=== PATIENT | female | born 1950 | race Caucasian/White ===

== ENCOUNTER 2017-11-06 22:00 | Inpatient (IN) | payer MEDICARE ==
[2017-11-06] MEDS ORDERED: NACL 0.9% 1000 ML 1,000 ML IV ONE (22:35)
[2017-11-06] MEDS ORDERED: ZOFRAN IV ONE (22:35)
--- NOTE | 2017-11-06 22:39 | Emergency Department Report ---
HPI - General Time Seen by Provider: 11/06/17 22:13 - HPI HPI: 67-year-old female presents to the emergency department via EMS from home with a complaint of a one-day history of nausea, vomiting, diarrhea and some generalized weakness and/or fatigue. The patient does not speak any Serbian but her grandchildren are here translating. She says that she has been vomiting multiple times throughout the day, upwards of 8-10 times. She has had some consistent diarrhea over this time as well. She has a past medical history of hyperlipidemia, [id number] diabetes. She has not taken anything for her symptoms prior to presentation. Primary care physician is Dr. Tunde Evans. No recent travel or sick contacts at home. ED Review of Systems ROS: Stated complaint: GENERAL WEAKNESS/NV Other details as noted in HPI Comment: All other systems reviewed and negative Constitutional: weakness. denies: fever Eyes: denies: eye pain, eye discharge, vision change ENT: denies: ear pain, throat pain Respiratory: denies: cough, shortness of breath, wheezing Cardiovascular: denies: chest pain, palpitations Gastrointestinal: nausea, vomiting, diarrhea Genitourinary: denies: urgency, dysuria, discharge Musculoskeletal: denies: back pain, joint swelling, arthralgia Skin: denies: rash, lesions Neurological: denies: headache, weakness, paresthesias Physical Exam - Physical Exam Physical Exam: GENERAL: The patient is well-developed well-nourished. HENT: Normocephalic. Atraumatic. Patient has moist mucous membranes. EYES: Extraocular motions are intact. Pupils equal reactive to light bilaterally. NECK: Supple. Trachea is midline. CHEST/LUNGS: Clear to auscultation. There is no respiratory distress noted. HEART/CARDIOVASCULAR: Regular. There is no tachycardia. There is no murmur. ABDOMEN: Abdomen is soft, nontender. Patient has normal bowel sounds. There is no abdominal distention. SKIN: Skin is warm and dry. NEURO: The patient is awake, alert, and oriented. The patient is cooperative. The patient has no focal neurologic deficits. MUSCULOSKELETAL: There is no tenderness or deformity. There is no evidence of acute injury. ED Medical Decision Making - Lab Data Result diagrams: 11/06/17 22:54 11/06/17 22:54 - EKG Data -: EKG Interpreted by Me EKG shows normal: sinus rhythm, axis, intervals, QRS complexes, ST-T waves (T- wave inversions to the inferior and lateral leads) Rate: normal - EKG Data When compared to previous EKG there are: previous EKG unavailable Interpretation: other (sinus rhythm, normal axis, T-wave inversions in the inferior and lateral leads) - Radiology Data Radiology results: report reviewed, image reviewed interpreted by me: Chest x-ray does not show any acute process. There are no pleural effusions, obvious pneumonia and there is no pneumothorax. PROCEDURE: US RENAL BILAT TECHNIQUE: Real-time sonography in multiple planes of the kidneys, ureters and urinary bladder was performed with image documentation. CPT 78577 HISTORY: SOFY COMPARISON: No prior studies are available for comparison. FINDINGS: RIGHT kidney: There are few cysts identified in the right kidney. In the mid and superior pole a cyst measures 1 x 7 x 11 millimeters. In the mid pole a cyst measures 12 x 10 x 12 millimeters.. Length: 7.8 cm. LEFT kidney: Normal echotexture. No focal renal mass, calculus, or hydronephrosis. Length: 3.3cm. Bladder: Normal. IMPRESSION: There are few cysts identified in the right renal cortex. No hydronephrosis.. Transcribed By: [facility] Dictated By: ELVIS PARK MD Electronically Authenticated By: ELVIS PARK MD Signed Date/Time: 11/07/17 0128 - Medical Decision Making Patient originally came in with complaint of nausea, vomiting, diarrhea and some generalized weakness and fatigue. She does not appear to have any focal deficits or any lateralizing deficits. She is awake and alert and cooperative. An IV was started and the patient was given some IV fluid resuscitation and some Zofran. EKG does not show any signs of ST elevation [place] but there are some T-wave inversions. Labs show a leukocytosis of 17,000 but no obvious source of infection. She has renal insufficiency with a creatinine of 1.8 and a GFR of less than 30. Patient also has a first troponin that is slightly elevated at 0.043. The patient has no complaints of any chest pain, back pain, shortness of breath and this may be secondary to her renal insufficiency, but we will get serial troponins. Chest x-ray does not show any acute process. However for all these reasons, the patient will be admitted to the hospital for further evaluation and treatment and has been accepted for admission by the hospitalist , Dr. Balbuena. - Differential Diagnosis gastroenteritis, food poisoning, sepsis, UTI, dehydration Critical Care Time: No Critical care attestation.: If time is entered above; I have spent that time in minutes in the direct care of this critically ill patient, excluding procedure time. ED Disposition Clinical Impression: Acute kidney injury, Elevated troponin, Generalized weakness Leukocytosis Qualifiers: Leukocytosis type: unspecified Qualified Code(s): D72.829 - Elevated white blood cell count, unspecified Nausea and vomiting Qualifiers: Vomiting type: unspecified Vomiting Intractability: non-intractable Qualified Code(s): R11.2 - Nausea with vomiting, unspecified Disposition: DC-09 OP ADMIT IP TO THIS HOSP Is pt being admited?: Yes Condition: Fair Referrals: GREGORIO NUNEZ MD [Primary Care Provider] - 3-5 Days Time of Disposition: 01:52
[2017-11-06 23:10] LABS: Eosinophils % (Auto) 0.1 % (0.0-4.3); Hematocrit 36.7 % (30.3-42.9); Hemoglobin 11.6 gm/dl (10.1-14.3); Lymphocytes # (Auto) 1.1 K/mm3 (1.2-5.4); Lymphocytes % (Auto) 6.4 % (13.4-35.0); Mean Corpuscular HGB Conc 32 % (30-34); Mean Corpuscular Hemoglobin 29 pg (28-32); Mean Corpuscular Volume 91 fl (79-97); Monocytes # (Auto) 0.7 K/mm3 (0.0-0.8); Monocytes % (Auto) 4.1 % (0.0-7.3); Platelet Count 193 K/mm3 (140-440); Red Blood Count 4.03 M/mm3 (3.65-5.03); Red Cell Distribution Width 13.4 % (13.2-15.2)
[2017-11-06 23:28] LABS: Albumin 4.3 g/dL (3.9-5); Calcium 9.6 mg/dL (8.4-10.2)
[2017-11-06 23:41] LABS: Chol/HDL Ratio 5.63 %
[2017-11-06 23:44] LABS: Bacteria,Urine 1+ /HPF (Negative); Bilirubin,Urine NEG (Negative); Blood,Urine SM (Negative); Color,Urine Yellow (Yellow); Mucus,Urine 1+ /HPF; Urobilinogen,Urine < 2.0 mg/dL (<2.0)
--- NOTE | 2017-11-06 23:52 | XRay Report ---
FINAL REPORT PROCEDURE: XR CHEST 1V AP TECHNIQUE: Chest radiograph anteroposterior view. CPT 20977 HISTORY: weakness COMPARISON: No prior studies are available for comparison. FINDINGS: Heart: Normal. Mediastinum/Vessels: Normal. Lungs/Pleural space: Normal. Bony thorax: No acute osseous abnormality. Life support devices: None. IMPRESSION: No acute cardiopulmonary abnormality.
[2017-11-07] MEDS ORDERED: ROCEPHIN/NS 1 GM/50 ML 1 GM/50 ML BAG IV ONE (00:22)
[2017-11-07] MEDS ORDERED: cefTRIAXone 1 GM in NACL 0.9% 20 ML IV ONE (00:30)
[2017-11-07] MEDS ORDERED: BABY ASPIRIN PO ONE (00:37)
--- NOTE | 2017-11-07 01:33 | Ultrasound Report ---
FINAL REPORT PROCEDURE: US RENAL BILAT TECHNIQUE: Real-time sonography in multiple planes of the kidneys, ureters and urinary bladder was performed with image documentation. CPT 70820 HISTORY: SOFY COMPARISON: No prior studies are available for comparison. FINDINGS: RIGHT kidney: There are few cysts identified in the right kidney. In the mid and superior pole a cyst measures 1 x 7 x 11 millimeters. In the mid pole a cyst measures 12 x 10 x 12 millimeters.. Length: 7.8 cm. LEFT kidney: Normal echotexture. No focal renal mass, calculus, or hydronephrosis. Length: 3.3cm. Bladder: Normal. IMPRESSION: There are few cysts identified in the right renal cortex. No hydronephrosis..
--- NOTE | 2017-11-07 02:51 | History and Physical Report ---
History of Present Illness Date of examination: 11/07/17 History of present illness: 67year old somali speaking woman with history of diabetes, breast cancer, hyperlipidemia comes to the ER for evaualuation of diarhea, non bloody, multiple episodes and nausea, vomiting and lethargy. She was in her garden working today in the hot sun. family at bedside traslating Review of system Constitutional: no weight loss, chills Ears, eyes, nose, mouth and throat: no nasal congestion, no nasal discharge, no sinus pressure, no vision change, no red eye. Neck: No neck pain or rigidity. Cardiovascular: no chest pain palpitations Respiratory: no shortness of breath cough Gastrointestinal: no abdominal pain, hematochezia Genitourinary : no frequency , no hematuria Musculoskeletal: no joint swelling or muscle ache Integumentary: no rash, no pruritis Neurological: no parathesias, no numbness, no focal weakness Endocrine: no cold or heat intolerance, no polyuria or polydipsia Hematologic/Lymphatic: no easy bruising, no easy bleeding, no gland swelling Allergic/Immunologic: no urticaria, no angioedema. PAST MEDICAL HISTORY: Diabetes, breast cancer, hyperlipidemia PAST SURGICAL HISTORY: right masectomy SOCIAL HISTORY: Denies focal, tobacco, drugs FAMILY HISTORY: Hypertension Medications and Allergies Allergies Allergy/AdvReac Type Severity Reaction Status Date / Time No Known Allergies Allergy Verified 11/07/17 00:25 Active Meds: Active Medications Enoxaparin Sodium (Lovenox) 30 mg SUB-Q QDAY [facility] Sodium Chloride (Nacl 0.9% 1000 Ml) 1,000 mls @ 150 mls/hr IV DIRECT KELLEY Exam - Physical Exam Narrative exam: Gen. appearance: Patient lying in bed, no apparent distress HEENT: Normocephalic, atraumatic, pupils equally round and reactive to light, extraocular movement intact, and no sclericterus,. No JVD or thyromegaly or nodule,neck supple, no carotid bruit ,mucous membranes dry, no exudate or erythema Heart: S1, S2, regular rate and rhythm Lungs: Clear bilaterally, breathing comfortable Abdomen: Positive bowel sounds, nontender, nondistended, no organomegaly Extremity:right cage tender, +erythema, swollen, 2nd and 3rd toes fused, no edema cyanosis, clubbing Neuro: Oriented 3, cranial nerves II-12 intact, motor and sensory intact - Constitutional Vitals: Temp Pulse Resp BP Pulse Ox 97.8 F 88 18 142/77 98 11/06/17 22:57 11/06/17 22:57 11/06/17 23:06 11/06/17 22:57 11/06/17 23:06 Results - Labs CBC & Chem 7: 11/06/17 22:54 11/06/17 22:54 Labs: Abnormal lab results 11/06/17 11/06/17 11/06/17 Range/Units 22:54 22:54 Unknown WBC 17.6 H (4.5-11.0) K/mm3 Lymph % (Auto) 6.4 L (13.4-35.0) % Lymph # 1.1 L (1.2-5.4) K/mm3 Seg Neutrophils % 89.4 H (40.0-70.0) % Seg Neutrophils # 15.7 H (1.8-7.7) K/mm3 Carbon Dioxide 18 L (22-30) mmol/L BUN 37 H (7-17) mg/dL Creatinine 1.8 H (0.7-1.2) mg/dL Glucose 181 H (65-100) mg/dL Troponin T 0.043 H (0.00-0.029) ng/mL Total Protein 8.7 H (6.3-8.2) g/dL Triglycerides 252 H (2-149) mg/dL Cholesterol 259 H (50-199) mg/dL LDL Cholesterol Direct 173 H (50-130) mg/dL Urine WBC (Auto) 15.0 H (0.0-6.0) /HPF - Imaging and Cardiology US - abdomen: report reviewed Assessment and Plan Assessment Acute renal failure Gsstroenteritis, viral UTI Diabetes Hyperlipidemia H/o breast cancer Plan Admit to medicine Start IV fluid, hold lisinopril Check stool studies, fingersticks, start antbiotic DVT prophalaxis
[2017-11-07] MEDS ORDERED: ZOFRAN IV PRN (03:06)
[2017-11-07] MEDS ORDERED: D50W (25GM) Syringe IV PRN (03:06)
[2017-11-07] MEDS ORDERED: TYLENOL PO PRN (03:06)
[2017-11-07] MEDS ORDERED: SODIUM CHLORIDE FLUSH SYRINGE 10 ML IV PRN (03:06)
[2017-11-07] MEDS: NACL 0.9% 1000 ML 1,000 ML IV SCH ×2 (05:07→12:50)
[2017-11-07] MEDS ORDERED: SODIUM CHLORIDE FLUSH SYRINGE 10 ML IV SCH (10:00)
[2017-11-07] MEDS: LOVENOX SUB-Q SCH (11:09)
[2017-11-07] MEDS: cefTRIAXone 1 GM in NACL 0.9% 20 ML IV SCH (11:09)
[2017-11-07] MEDS ORDERED: PNEUMOVAX 23 IM ONE (12:00)
[2017-11-08] MEDS: NACL 0.9% 1000 ML 1,000 ML IV SCH ×2 (01:16→07:05)
[2017-11-08 07:50] LABS: Basophils % (Auto) 0.2 % (0.0-1.8); Eosinophils # (Auto) 0.1 K/mm3 (0.0-0.4); Eosinophils % (Auto) 1.2 % (0.0-4.3); Hematocrit 28.5 % (30.3-42.9); Hemoglobin 9.3 gm/dl (10.1-14.3); Lymphocytes # (Auto) 1.4 K/mm3 (1.2-5.4); Lymphocytes % (Auto) 24.7 % (13.4-35.0); Mean Corpuscular HGB Conc 33 % (30-34); Mean Corpuscular Hemoglobin 30 pg (28-32); Mean Corpuscular Volume 90 fl (79-97); Monocytes # (Auto) 0.3 K/mm3 (0.0-0.8); Monocytes % (Auto) 5.1 % (0.0-7.3); Platelet Count 128 K/mm3 (140-440); Red Blood Count 3.15 M/mm3 (3.65-5.03); Red Cell Distribution Width 13.4 % (13.2-15.2)
[2017-11-08 07:56] LABS: BUN/Creatinine Ratio 16; Blood Urea Nitrogen 13 mg/dL (7-17); Calcium 7.9 mg/dL (8.4-10.2); Hemolysis Index 7
[2017-11-08 08:51] VITALS: BP 145/83
[2017-11-08] MEDS: cefTRIAXone 1 GM in NACL 0.9% 20 ML IV SCH (10:15)
[2017-11-08] MEDS: LOVENOX SUB-Q SCH (10:16)
--- NOTE | 2017-11-08 14:58 | Discharge Summary ---
Providers - Providers Date of Admission: 11/07/17 02:42 Attending physician: NOAH NORWOOD MD Primary care physician: GREGORIO NUNEZ Hospitalization Condition: Fair Hospital course: 67year old south african speaking woman with history of diabetes, breast cancer, hyperlipidemia comes to the ER for evaualuation of diarhea, non bloody, multiple episodes and nausea, vomiting and lethargy. She was in her garden working in 103 degree sun before she felt ill. She was admitted for acute gastroenteritis, most likely viral. She received supportive treatment. She received IV fluids. Kidney function improved to baseline prior to discharge. She received abx for UTI Diagnosis vasomotor nephropathy Dehydration Acute renal failure Gastroenteritis, viral UTI Diabetes Hyperlipidemia H/o breast cancer Disposition: TO HOME OR SELFCARE Time spent for discharge: 33 minutes Core Measure Documentation - Palliative Care Palliative Care/ Comfort Measures: Not Applicable - Core Measures Any of the following diagnoses?: none Exam - Constitutional Vitals: Temp Pulse Resp BP Pulse Ox 98.5 F 86 20 145/83 100 11/08/17 08:23 11/08/17 10:00 11/08/17 10:00 11/08/17 08:23 11/08/17 10:00 General appearance: Present: no acute distress, well-nourished - EENT Eyes: Present: PERRL ENT: hearing intact, clear oral mucosa - Neck Neck: Present: supple, normal ROM - Respiratory Respiratory effort: normal Respiratory: bilateral: CTA - Cardiovascular Heart Sounds: Present: S1 & S2. Absent: rub, click - Extremities Extremities: pulses symmetrical, No edema Peripheral Pulses: within normal limits - Abdominal General gastrointestinal: Present: soft, non-tender, non-distended, normal bowel sounds Female genitourinary: Present: normal - Integumentary Integumentary: Present: clear, warm, dry - Musculoskeletal Musculoskeletal: gait normal, strength equal bilaterally - Psychiatric Psychiatric: appropriate mood/affect, intact judgment & insight - Neurologic Neurologic: CNII-XII intact, moves all extremities Plan Follow up with: GREGORIO NUNEZ MD [Primary Care Provider] - 3-5 Days Forms: Accompanied Note Prescriptions: Cephalexin [Keflex] 500 mg PO BID #6 capsule
[2017-11-09] MEDS ORDERED: LOVENOX SUB-Q SCH (10:00)
--- NOTE | 2017-11-09 13:09 | Query-Infection ---
Cecily Diaz___Tanna Date:__11/09/2017 Nut [employer]acker/CDS:___Ana Maria Phone#:__[phone] Exercise your independent professional judgment when responding to this query. Questions asked do not imply a particular answer is desired or expected. We greatly appreciate your clarification on this issue. Clinical Documentation States: 67 Year old female was admitted on 11/06/2017 or evaluation of diarrhea, non bloody, multiple episodes and nausea, vomiting and lethargy. The Discharge summary stated "Gastroenteritis, viral UTI." Clinical findings show: (please check applicable parameters) WBC (11/06): 17.6 NH (11/06): 102 RR (11/06): 22 Infection, known /suspected, with some of the following indicators; Specify the infection: 3 General parameters [ ] Fever (core temp >38.30C or 100.40F) [ ] Hypothermia (core temp <36C) [X] Heart rate >90 bpm [X] Tachypnea: >20 bpm or pCO2 < 32 mmHg [ ] Altered mental status [ ] Significant edema / +ve fluid balance (>20 ml/kg 24 h) [ ] Hyperglycemia (Bl. glucose >110 mg/dl) w/o diabetes Inflammatory parameters [X] Leukocytosis (white blood cell count >12,000/l) [ ] Leukopenia (white blood cell count <4,000/l) [ ] Bandemia (immature WBC > 10%) [ ] Leucocyte Left Shift [ ] Plasma procalcitonin>2 SD above the normal value Hemodynamic and tissue perfusion parameters [ ] Arterial hypotension(SBP <90 mmHg, MAP <70 mmHg,or a SBP drop >40 mmHg in adults) [ ] Hyperlactatemia (>3 mmol/l) [ ] Anion Gap (> 11mEG/l) [ ] Decreased capillary refill or mottling Organ dysfunction parameters [ ] Arterial hypoxemia (PaO2/FIO2 <300) [ ] Creatinine increase =0.5 mg/dl [ ] Acute oliguria (urine output <0.5 ml | kg |h or 45 mM/l for at least 2 hrs) [ ] Coagulation abnormalities (INR >1.5 or activated partial thromboplastin time >60 s) [ ] Ileus (absent albina wel sounds) [ ] Thrombocytopenia (platelet count <100,000/l) [ ] Hyperbilirubinemia (plasma total bilirubin >4 mg/dl) According to the clinical indications above, can Bacteremia be further specified? If so, please indicate below and in your Progress Notes and/ or Discharge Summary. Indicate if the condition was present on admission. PHYSICIAN RESPONSE: [x ] Sepsis [ ] Severe Sepsis [ ] Septic Shock [ ] Septicemia [ ] Sepsis now resolved [ ] SIRS due to non-infectious cause with organ dysfunction [ ] SIRS due to non-infectious cause without organ dysfunction [ ] Other: [ ] Comment/Explanation: Present on Admission: [ x] Yes (Y) [ ] Clinically undeterminable (W) [ ] No (N) [ ] Ruled Out Please also document response in your Progress Notes and/or Discharge Summary and indicate if the condition was present on admission Notes: SIRS/ SIRS WITH ORGAN DYSFUNCTION Systemic inflammatory response syndrome (SIRS) generally refers to the systemic response to trauma/sy or other insult such as Acute Myocardial Infarction, Acute Pancreatitis, and Major Surgery with symptoms including fever, tachycardia , tachypnea, and leukocytosis (1). BACTEREMIA Presence of viable bacteria in the circulating blood (2). This term is reserved for patients that do not manifest above SIRS response. SEPTICEMIA Generally refers to a systemic disease associated with the presence of pathological microorganisms or toxins in the blood, which can include bacteria, viruses, fungi or other organisms (1). SEPSIS Generally refers to SIRS due infection (1). SEVERE SEPSIS Generally refers to sepsis associated with acute organ dysfunction (1). SEPTIC SHOCK Generally refers to circulatory failure associated with severe sepsis (2), and defined as hypotension or hypoperfusion despite adequate fluid resuscitation (1 hour) (3). REFERENCES: 1. [place] [employer]/Society of Critical Care Medicine Consensus Conference. Definitions for sepsis and organ failure and guidelines for the use of innovative therapies in sepsis. Critical Care Med 1992;20:864 - 74. 2. Emmett crawford MM, Jody MP, Casey TATYANA, Rod E, Martell D, Abdirahman D, Matty J, Isabell RITTER , Steven ASH, Dino G; International Sepsis Definitions Conference. 2001 SCCM/ESICM/ACCP/ATS/SIS International Sepsis Definitions Conference. Intensive Care Med. 2002 Apr;29(4):530-8. Epub 2002Aug 15. Review. PubMed PMID:[id number] 3. ICD-9-CM Official Guidelines for Coding and Reporting 4. Medscape Drugs, Diseases and Procedures references 5. [employer] Textbook of Internal Medicine. 18th Edition MTDD
== END 2017-11-08 17:41 | disposition home or self-care (01) | DRG 871 ==
LOC: ED 22:00 → 4A 11-07 02:42
PROVIDERS: ADMIT Internal Medicine; ATTEND Internal Medicine
DX: A41.9 Sepsis, unspecified organism (principal); N17.0 Acute kidney failure with tubular necrosis; N39.0 Urinary tract infection, site not specified; K52.9 Noninfective gastroenteritis and colitis, unspecified; E86.0 Dehydration; E11.9 Type 2 diabetes mellitus without complications; E78.5 Hyperlipidemia, unspecified; Z85.3 Personal history of malignant neoplasm of breast
CPT/HCPCS: 36415; 71045; 76770; 80048; 80053; 80061; 81001; 84443; 84484; 85025; 87086; 90732; 93005; 93010; J0696; J1650; J2405; J7030

== ENCOUNTER 2018-08-17 10:25 | Inpatient (IN) | payer MEDICARE ==
[2018-08-17] MEDS ORDERED: SUBLIMAZE IV ONE ×2 (11:46→14:32)
[2018-08-17] MEDS ORDERED: PEPCID IV ONE (11:46)
[2018-08-17] MEDS ORDERED: NITROSTAT SL PRN (11:46)
[2018-08-17] MEDS ORDERED: NACL 0.9% 500 ML 500 ML IV ONE ×3 (11:46→14:31)
--- NOTE | 2018-08-17 11:47 | Emergency Department Report ---
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 The patient reportedly has a history of breast cancer, and renal insufficiency. She does not feel who her breast cancer physician is. She does not know who her primary care doctor is. She presents to the emergency room with a complaint of abdominal pain and chest pain. The chest pain is central and right-sided. The abdominal pain is all over. She does not think that she has exacerbating or relieving factors. She denies irritative, obstructive urinary symptoms. She denies hematemesis, bright red blood per rectum. Her abdominal pain has been present intermittently for one week,, does not radiate anywhere, and the pain worsens with palpation, and decreases with rest. No recent aspirin use, patient reports no pulmonary embolus or DVT risk factors. No recent cardiac reset indication of the patient can recall. Location: chest, abdomen Quality: other Consistency: other Improves with: other Worsens with: other - Related Data Previous Rx's Medication Instructions Recorded Last Taken Type Cephalexin [Keflex] 500 mg PO BID #6 capsule 11/08/17 Unknown Rx Allergies Allergy/AdvReac Type Severity Reaction Status Date / Time No Known Allergies Allergy Verified 11/07/17 00:25 ED Review of Systems ROS: Stated complaint: CHEST/ABDOMINAL PAIN Other details as noted in HPI Constitutional: malaise Eyes: denies: eye discharge ENT: denies: epistaxis Respiratory: denies: wheezing Cardiovascular: chest pain Gastrointestinal: abdominal pain. denies: hematemesis, melena, hematochezia Genitourinary: denies: urgency Musculoskeletal: denies: arthralgia Skin: denies: lesions Neurological: weakness ED Past Medical Hx - Past Medical History Hx Hypertension: Yes Hx Heart Attack/AMI: No Hx Congestive Heart Failure: No Hx Diabetes: Yes Hx Deep Vein Thrombosis: No Hx Liver Disease: No - Surgical History Hx Coronary Stent: No Hx Pacemaker: No Hx Internal Defibrillator: No Hx Breast Surgery: Yes (2007) - Social History Smoking Status: Never Smoker - Medications Home Medications: Home Medications Medication Instructions Recorded Confirmed Last Taken Type Cephalexin [Keflex] 500 mg PO BID #6 capsule 11/08/17 Unknown Rx ED Physical Exam - General Limitations: Language Barrier General appearance: alert, in no apparent distress - Head Head exam: Present: atraumatic, normocephalic - Eye Eye exam: Present: normal appearance, EOMI. Absent: nystagmus - ENT ENT exam: Present: normal exam, normal orophraynx, mucous membranes moist, normal external ear exam - Neck Neck exam: Present: normal inspection, full ROM. Absent: tenderness, me ningismus - Respiratory Respiratory exam: Present: normal lung sounds bilaterally. Absent: respiratory distress - Cardiovascular Cardiovascular Exam: Present: regular rate, normal rhythm, normal heart sounds. Absent: bradycardia, tachycardia, irregular rhythm, systolic murmur, diastolic murmur, rubs, gallop - GI/Abdominal GI/Abdominal exam: Present: soft. Absent: distended, tenderness, guarding, rebound, rigid, pulsatile mass - Rectal Rectal exam: Present: normal inspection, normal rectal tone, heme (-) stool, other (chaperoned by nurse Blanca Marino). Absent: heme (+) stool, black stool, bloody stool, fecal impaction, hemorrhoids, tenderness - Extremities Exam Extremities exam: Present: normal inspection, full ROM, other (2+ pulses noted in the bilateral upper, lower extremities ( femoral). Compartments soft. No long bony tenderness. The pelvis is stable.). Absent: tenderness, pedal edema, joint swelling, calf tenderness - Back Exam Back exam: Present: normal inspection, full ROM. Absent: tenderness, CVA tenderness (R), paraspinal tenderness, vertebral tenderness - Neurological Exam Neurological exam: Present: alert, other (there is no facial droop. The tongue is midline. Extraocular movements are intact bilaterally. 5 out of 5 strength in 4 extremities.) - Psychiatric Psychiatric exam: Absent: anxious - Skin Skin exam: Present: warm, dry, intact, normal color. Absent: rash ED Course Vital Signs 08/17/18 08/17/18 08/17/18 11:07 11:15 11:21 Pulse Rate 82 88 82 Respiratory 20 20 20 Rate Blood Pressure 152/56 168/73 Blood Pressure 152/56 [Right] O2 Sat by Pulse 100 100 100 Oximetry 08/17/18 08/17/18 08/17/18 11:30 11:45 12:00 Pulse Rate 84 94 H 84 Respiratory 18 18 17 Rate Blood Pressure 168/73 152/75 152/75 Blood Pressure [Right] O2 Sat by Pulse 97 100 Oximetry 08/17/18 08/17/18 08/17/18 12:15 12:30 12:45 Pulse Rate 85 87 92 H Respiratory 15 19 14 Rate Blood Pressure 119/55 122/62 117/54 Blood Pressure [Right] O2 Sat by Pulse 100 100 99 Oximetry 08/17/18 08/17/18 08/17/18 13:28 13:30 13:45 Pulse Rate 99 H 96 H 88 Respiratory 15 11 L Rate Blood Pressure 117/54 145/62 141/73 Blood Pressure [Right] O2 Sat by Pulse 99 100 Oximetry 08/17/18 08/17/18 08/17/18 14:00 14:15 14:30 Pulse Rate 84 96 H 86 Respiratory 12 17 14 Rate Blood Pressure 133/73 153/101 162/78 Blood Pressure [Right] O2 Sat by Pulse 100 100 Oximetry 08/17/18 08/17/18 14:46 15:00 Pulse Rate 91 H 87 Respiratory 11 L 13 Rate Blood Pressure 153/101 153/101 Blood Pressure [Right] O2 Sat by Pulse 98 100 Oximetry - Reevaluation(s) Reevaluation #1: 08/17/18 14:35 Differential diagnosis, including but not limited to: Malignancy, colitis, diverticulitis, pneumonia, acute coronary syndrome, pulmonary embolus, recurrent cancer, symptomatic anemia Assessment and plan: 67-year-old female, [id number], tachycardic, not hypoxic, with abdominal pain and chest pain. The patient is afebrile with otherwise reassuring vital signs. She is guaiac negative on rectal examination. She is amenable to packed red blood cell transfusion. We will transfuse the patient with packed red blood cells. We will treat her pain. EKG is pending. Screening laboratory studies also show hyperkalemia, not hemolyzed as per laboratory report, we'll therefore give her Kayexalate. Objective imaging of the chest, abdomen, pelvis is pending at this time. Please note that there has been a significant delay in disposition as the off- site radiology group, [facility], is having technical issues, and is not currently able to interpret look at images. I have specifically escalated this issue to my rooming house inspector, Mrs. Karen Radford, and have requested that administration obtain an expedient solution to the current imaging situation. We are awaiting callback. Reevaluation #2: 08/17/18 15:20 CT scan shows no pulmonary embolus. CT scan of the abdomen and pelvis suggests peptic ulcer disease, duodenitis. Incidental aortic stenosis is reviewed and appreciated. Patient does have femoral pulses. She endorses no lower extremity complaints. She endorses no complaints of claudication. The patient has revascularization and collateralization noted on her CT scan. Clinically do not suspect acute issue with the patient's aorta, and I have discussed this case with the consulting vascular surgeon, Dr. Bolden, who stated that the patient could follow-up as an outpatient for her incidental arterial abnormalities. I do suspect that the patient may have an upper GI bleed or gastritis, duodenitis, based off of her decreased hemoglobin, hematocrit, elevated blood urea nitrogen, and complaint of abdominal pain. Discussed case with gastroenterology on-call, Dr. Matthew Per group for follow-up consultation. Will transfuse the patient 2 units of irradiated packed red blood cells. Patient will be given pain medication and Protonix. Patient will be admitted to the medical service. The Hospital physician, Dr. Mensah accepts to his service 08/17/18 15:26 08/17/18 15:47 ED Medical Decision Making - Lab Data Result diagrams: 08/17/18 12:12 08/17/18 12:12 Vital Signs 08/17/18 08/17/18 08/17/18 11:07 11:15 11:21 Pulse Rate 82 88 82 Respiratory 20 20 20 Rate Blood Pressure 152/56 168/73 Blood Pressure 152/56 [Right] O2 Sat by Pulse 100 100 100 Oximetry Labs 08/17/18 08/17/18 08/17/18 12:12 12:12 12:12 WBC 9.1 RBC 2.38 L Hgb 6.9 L Hct 20.8 L MCV 87 MCH 29 MCHC 33 RDW 12.7 L Plt Count 253 Lymph % (Auto) 13.4 Wolfe % (Auto) 3.7 Eos % (Auto) 0.3 Baso % (Auto) 0.5 Lymph # 1.2 Wolfe # 0.3 Eos # 0.0 Baso # 0.0 Seg Neutrophils % 82.1 H Seg Neutrophils # 7.5 PT 11.7 L INR 0.81 L APTT 26.7 Sodium 132 L Potassium 6.0 H Chloride 98.2 Carbon Dioxide 22 Anion Gap 18 BUN 21 H Creatinine 1.1 Estimated GFR 50 BUN/Creatinine Ratio 19 Glucose 201 H Lactic Acid Calcium 9.2 Magnesium 1.50 L Total Bilirubin 0.20 AST 12 ALT 9 Alkaline Phosphatase 66 Total Creatine Kinase 52 Troponin T < 0.010 Total Protein 7.3 Albumin 3.7 L Albumin/Globulin Ratio 1.0 Blood Type 08/17/18 08/17/18 12:12 13:30 WBC RBC Hgb Hct MCV MCH MCHC RDW Plt Count Lymph % (Auto) Wolfe % (Auto) Eos % (Auto) Baso % (Auto) Lymph # Wolfe # Eos # Baso # Seg Neutrophils % Seg Neutrophils # PT INR APTT Sodium Potassium Chloride Carbon Dioxide Anion Gap BUN Creatinine Estimated GFR BUN/Creatinine Ratio Glucose Lactic Acid 1.00 Calcium Magnesium Total Bilirubin AST ALT Alkaline Phosphatase Total Creatine Kinase Troponin T Total Protein Albumin Albumin/Globulin Ratio Blood Type A POSITIVE - EKG Data 08/17/18 14:33 Prehospital EKG shows normal sinus, normal axis, rate is approximately high 90s, motion artifact, intervals within normal limits, not consistent with ST elevation myocardial infarction. - Radiology Data Radiology results: pending, image reviewed interpreted by me: X-ray the chest is negative for acute disease Critical Care Time: Yes Critical care time in (mins) excluding proc time.: 35 Critical care attestation.: If time is entered above; I have spent that time in minutes in the direct care of this critically ill patient, excluding procedure time. ED Disposition Clinical Impression: Abdominal pain, Anemia, Stenosis of abdominal aorta Disposition: DC-09 OP ADMIT IP TO THIS HOSP Is pt being admited?: Yes Condition: Good Referrals: PRIMARY CARE, [Primary Care Provider] - 3-5 Days
[2018-08-17 12:24] LABS: Basophils % (Auto) 0.5 % (0.0-1.8); Eosinophils % (Auto) 0.3 % (0.0-4.3); Hematocrit 20.8 % (30.3-42.9); Hemoglobin 6.9 gm/dl (10.1-14.3); Lymphocytes # (Auto) 1.2 K/mm3 (1.2-5.4); Lymphocytes % (Auto) 13.4 % (13.4-35.0); Mean Corpuscular HGB Conc 33 % (30-34); Mean Corpuscular Volume 87 fl (79-97); Monocytes # (Auto) 0.3 K/mm3 (0.0-0.8); Monocytes % (Auto) 3.7 % (0.0-7.3); Platelet Count 253 K/mm3 (140-440); Red Blood Count 2.38 M/mm3 (3.65-5.03); Red Cell Distribution Width 12.7 % (13.2-15.2)
[2018-08-17 12:34] LABS: INR 0.81 (0.87-1.13)
[2018-08-17 12:35] LABS: Partial Thromboplastin Time 26.7 Sec. (24.2-36.6)
[2018-08-17 12:42] LABS: Alanine Aminotransferase 9 units/L (7-56); Albumin 3.7 g/dL (3.9-5); BUN/Creatinine Ratio 19; Blood Urea Nitrogen 21 mg/dL (7-17); Calcium 9.2 mg/dL (8.4-10.2); Hemolysis Index 0
[2018-08-17] MEDS ORDERED: KIONEX PO ONE ×2 (14:31→22:00)
--- NOTE | 2018-08-17 15:02 | Cat Scan Report ---
PROCEDURE: CT ANGIO CHEST TECHNIQUE: Computerized tomographic angiography of the chest was performed after the IV injection of iodinated nonionic contrast including image processing. The image data was postprocessed using 2-di mensional multiplanar reformatted (MPR) and 3-dimensional (MIP and/or volume rendered) techniques. Au tomated exposure control, adjustment of mA and/or kV according to patient size, or iterative reconstr uction dose optimization techniques were utilized. HISTORY: cp hx of breast ca COMPARISONS: None . FINDINGS: Heart and pericardium: No pericardial effusion or thickening. Thoracic aorta: Mild atherosclerotic calcification. No aneurysm or dissection. Pulmonary vasculature: Normal. Lymph nodes: Calcified 8 mm subcarinal lymph node is present. Small subcentimeter calcified right hi lar node is also noted. Lungs: Normal. Pleural space: No effusion, thickening, or pneumothorax. Musculoskeletal structures: No significant abnormality. Upper abdominal structures: No significant abnormality. IMPRESSION: No evidence of pulmonary emboli. Calcified mediastinal and hilar nodes are noted . This document is electronically signed by Suzanna Beltrán MD., August 17 2018 02:01:17 PM ET
--- NOTE | 2018-08-17 15:02 | Cat Scan Report ---
PROCEDURE: CT ABDOMEN PELVIS W CON TECHNIQUE: Computerized axial tomography of the abdomen and pelvis was performed after the IV inject ion of iodinated nonionic contrast. HISTORY: abd pain COMPARISONS: None . FINDINGS: Liver: Normal size and attenuation. Spleen: Normal size and attenuation. Gallbladder and biliary system: Normal. Pancreas: Normal. Adrenals: Normal. Kidneys: Normal. GI tract: There is wall thickening of the proximal duodenum and possible ulcer. Correlate for duoden itis/peptic ulcer disease. No evidence of bowel obstruction. Scattered colonic diverticula are presen t . Lymph nodes and mesentery: Normal. Vasculature: There is dense atherosclerotic calcification of the aorta with significant luminal narro wing of the distal aorta superior the bifurcation. The bilateral common iliac arteries appear occlude d, with distal reconstitution of the bilateral external and internal iliac arteries. Bladder: Normal. Reproductive organs: Normal. Peritoneum: No free fluid. Musculoskeletal structures: No significant abnormality. Other: None . IMPRESSION: Findings are suspicious for duodenitis/peptic ulcer disease. Correlate clinically . Significant luminal narrowing of the distal abdominal aorta with occlusion of the bilateral common il iac arteries proximally, with distal reconstitution of the external and internal iliac arteries bilat erally This document is electronically signed by Suzanna Beltrán MD., August 17 2018 02:14:04 PM ET
--- NOTE | 2018-08-17 15:02 | XRay Report ---
PROCEDURE: XR CHEST 1V AP TECHNIQUE: Chest, portable upright HISTORY: cp COMPARISON: 11/06/2017 FINDINGS: The heart size is normal. There is no pulmonary vascular congestion seen. Mediastinal contours are normal. Lungs are clear. There is no pleural effusion seen. There is no pneumothorax seen. IMPRESSION: No acute abnormality identified. This document is electronically signed by Cecille Corral MD., August 17 2018 01:45:11 PM ET
[2018-08-17] MEDS ORDERED: PROTONIX IV ONE (15:05)
[2018-08-17 15:35] LABS: Bilirubin,Urine NEG (Negative); Blood,Urine SM (Negative); Color,Urine Amber (Yellow); Protein,Urine <15 mg/dL mg/dL (Negative); Urobilinogen,Urine < 2.0 mg/dL (<2.0); WBC,Urine < 1.0 /HPF (0.0-6.0)
[2018-08-17] MEDS ORDERED: HumuLIN R IV STA (15:36)
[2018-08-17] MEDS ORDERED: CALCIUM GLUCONATE 1,000 MG in NACL 0.9% 100 ML IV STA (15:36)
[2018-08-17] MEDS ORDERED: D50W (25GM) Vial IV STA (15:37)
[2018-08-17] MEDS ORDERED: ZOFRAN IV PRN (15:39)
[2018-08-17] MEDS ORDERED: SODIUM CHLORIDE FLUSH SYRINGE 10 ML IV PRN (15:39)
[2018-08-17] MEDS ORDERED: MORPHINE IV PRN (15:39)
[2018-08-17] MEDS ORDERED: MAGNESIUM SULFATE 3 GM in NACL 0.9% 100 ML IV ONE (15:45)
--- NOTE | 2018-08-17 16:18 | Event Note ---
Date: 08/17/18 Discussed incidental finding of distal aorta and common iliac arteries with dr. Borges. There is reconstitution of external iliac arteries. This appears chronic. No urgent vascular intervention needed.
[2018-08-17 17:03] LABS: Iron 21 ug/dL (37-170); Total Iron Binding Capacity 283 mcg/dL (250-450)
--- NOTE | 2018-08-17 17:26 | History and Physical Report ---
History of Present Illness Date of examination: 08/17/18 Date of admission: 08/17/18 Chief complaint: Abdominal pain Gen weakness History of present illness: Patient is 67-year-old with history of hypertension, diabetes. She also has a history of breast cancer 10 years ago status post right mastectomy. She presents because of abdominal pain and generalized weakness. Abdominal pain for about 2 weeks, sharp, mid-abdominal pain, no radiation. Also complains of poor appetite. She was evaluated in ED found to have a hemoglobin of 6.9 , and Potassium of 6.0. Blood cell transfusion has been ordered. CT Abdomen revealed significant luminal narrowing of distal abdominal aorta with occlusion of bilateral common femoral arteries and reconstitution of external and internal iliac arteries.. She was evaluated by vas surgeon in ED. After evaluation she concluded that this is chronic and no urgent intervention needed. Will admit to Telemetry for further management.. Past History Past Medical History: cancer (Breast cancer 10yrs), diabetes, hypertension Past Surgical History: mastectomy (Right mastectomy 10yrs ago) Social history: lives with family, full code. denies: smoking, alcohol abuse Family history: hypertension Medications and Allergies Allergies Allergy/AdvReac Type Severity Reaction Status Date / Time No Known Allergies Allergy Verified 11/07/17 00:25 Home Medications Medication Instructions Recorded Confirmed Last Taken Type Cephalexin [Keflex] 500 mg PO BID #6 capsule 11/08/17 Unknown Rx Active Meds: Active Medications Acetaminophen (Tylenol) 650 mg PO Q4H PRN PRN Reason: Pain MILD(1-3)/Fever >100.5/MCLAUGHLIN Magnesium Sulfate 3 gm/ Sodium (Chloride) 106 mls @ 35.333 mls/hr IV ONCE ONE Stop: 08/17/18 18:44 Last Admin: 08/17/18 16:27 Dose: 35.333 mls/hr Documented by: Morphine Sulfate (Morphine) 2 mg IV Q4H PRN PRN Reason: Pain, Moderate (4-6) Nitroglycerin (Nitrostat) 0.4 mg SL .Q5MIN PRN PRN Reason: Chest Pain Ondansetron HCl (Zofran) 4 mg IV Q8H PRN PRN Reason: Nausea And Vomiting Pantoprazole Sodium (Protonix) 40 mg IV BID KELLEY Sodium Chloride (Sodium Chloride Flush Syringe 10 Ml) 10 ml IV BID KELLEY Sodium Chloride (Sodium Chloride Flush Syringe 10 Ml) 10 ml IV PRN PRN PRN Reason: LINE FLUSH Sodium Polystyrene Sulfonate (Kionex) 30 gm PO ONCE ONE Stop: 08/17/18 22:01 Review of Systems All systems: negative (No fever, no cough, no urinary symptoms. All other systems reviewed and are neg) Exam - Physical Exam Narrative exam: GEN: Not in acute distress, lying in bed, HEENT: Normocephalic, atraumatic, Neck: supple, No JVD heart: S1 and S2 reg, no murmurs, rubs or gallop, s/p right mastectomy Lungs: Clear, no crackles, no wheeze Abd:soft, non tender, non distended,. normal bowel sounds Ext: No edema, no clubbing, no cyanosis Neuro:Awake,alert,oriented X 3, moves all ext Psych: normal mood - Constitutional Vitals: Temp Pulse Resp BP Pulse Ox 87 16 153/101 100 08/17/18 15:00 08/17/18 16:27 08/17/18 15:00 08/17/18 16:27 Results - Labs CBC & Chem 7: 08/18/18 07:27 08/18/18 07:27 Labs: Abnormal lab results 08/17/18 08/17/18 08/17/18 Range/Units 12:12 12:12 12:12 RBC 2.38 L (3.65-5.03) M/mm3 Hgb 6.9 L (10.1-14.3) gm/dl Hct 20.8 L (30.3-42.9) % RDW 12.7 L (13.2-15.2) % Seg Neutrophils % 82.1 H (40.0-70.0) % PT 11.7 L (12.2-14.9) Sec. INR 0.81 L (0.87-1.13) Sodium 132 L (137-145) mmol/L Potassium 6.0 H (3.6-5.0) mmol/L BUN 21 H (7-17) mg/dL Glucose 201 H (65-100) mg/dL Magnesium 1.50 L (1.7-2.3) mg/dL Iron (37-170) ug/dL Albumin 3.7 L (3.9-5) g/dL Crossmatch 08/17/18 08/17/18 Range/Units 12:12 13:30 RBC (3.65-5.03) M/mm3 Hgb (10.1-14.3) gm/dl Hct (30.3-42.9) % RDW (13.2-15.2) % Seg Neutrophils % (40.0-70.0) % PT (12.2-14.9) Sec. INR (0.87-1.13) Sodium (137-145) mmol/L Potassium (3.6-5.0) mmol/L BUN (7-17) mg/dL Glucose (65-100) mg/dL Magnesium (1.7-2.3) mg/dL Iron 21 L (37-170) ug/dL Albumin (3.9-5) g/dL Crossmatch See Detail Assessment and Plan Hyperkalemia Potassium 6,0 Admit to Tele give calcium gluconate, Insulin, Kayexalate X 2 Repeat in few hrs Anemia hemoglobin 6.9 Stool occult blood negative GI consulted by ED Physician Consult hematology since stool occult neg Transfuse 2 units PRBC Protonix iv Poss duodenitis/peptic ulcer disease changes on CT Protonix iv Narrowing of distal abdominal aorta with occlusion common iliac arteries bilat and with reconstitution of external and internal iliac arteries Patient evaluated by Vascular surgeon in ED. She states No intervention necessary Hypertension Monitor BP Diabetes mellitus type 2, Fingerstick glucose before meals and at bedtime Hyponatremia. Monitor repeat BMP in am Hypomagnesemia He presented recheck in the morning History of breast cancer s/p right mastectomy about 10 yrs ago DVT prophylaxis with SCDs only. No chemical anticoagulation because of unexplained Anemia Full code status
[2018-08-17] MEDS ORDERED: D50W (25GM) Syringe IV PRN (17:29)
[2018-08-17] MEDS ORDERED: NACL 0.9% 500 ML 500 ML ONE (17:32)
[2018-08-17] MEDS: NORVASC PO SCH (18:34)
[2018-08-17] MEDS: SODIUM CHLORIDE FLUSH SYRINGE 10 ML IV SCH (22:31)
[2018-08-17] MEDS: HumaLOG SUB-Q SCH (22:44)
[2018-08-18] MEDS: TYLENOL PO PRN (00:09)
[2018-08-18 00:15] LABS: Calcium 8.9 mg/dL (8.4-10.2)
[2018-08-18] MEDS: PROTONIX IV SCH ×3 (04:10→22:40)
[2018-08-18 07:52] LABS: Basophils % (Auto) 0.3 % (0.0-1.8); Eosinophils # (Auto) 0.1 K/mm3 (0.0-0.4); Eosinophils % (Auto) 1.4 % (0.0-4.3); Hemoglobin 11.1 gm/dl (10.1-14.3); Lymphocytes # (Auto) 1.1 K/mm3 (1.2-5.4); Lymphocytes % (Auto) 15.6 % (13.4-35.0); Mean Corpuscular HGB Conc 34 % (30-34); Mean Corpuscular Volume 89 fl (79-97); Monocytes # (Auto) 0.4 K/mm3 (0.0-0.8); Monocytes % (Auto) 6.3 % (0.0-7.3); Platelet Count 228 K/mm3 (140-440); Red Blood Count 3.72 M/mm3 (3.65-5.03); Red Cell Distribution Width 13.6 % (13.2-15.2)
[2018-08-18] MEDS: HumaLOG SUB-Q SCH ×4 (07:59→22:40)
[2018-08-18 08:09] LABS: Calcium 8.9 mg/dL (8.4-10.2)
[2018-08-18 08:33] LABS: Chol/HDL Ratio 4.09 %
[2018-08-18] MEDS: KIONEX PO SCH ×2 (08:53→14:19)
[2018-08-18] MEDS: NORVASC PO SCH (09:02)
[2018-08-18] MEDS: SODIUM CHLORIDE FLUSH SYRINGE 10 ML IV SCH ×2 (09:03→22:40)
--- NOTE | 2018-08-18 14:21 | Progress Note ---
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 She states No intervention necessary Hypertension Monitor BP Diabetes mellitus type 2, Fingerstick glucose before meals and at bedtime Hyponatremia. Monitor repeat BMP in am Hypomagnesemia Resolved after replacement History of breast cancer s/p right mastectomy about 10 yrs ago DVT prophylaxis with SCDs only. No chemical anticoagulation because of unexplained Anemia Full code status History Interval history: Gen weakness Hospitalist Physical - Physical exam Narrative exam: GEN: Not in acute distress, lying in bed, HEENT: Normocephalic, atraumatic, Neck: supple, No JVD heart: S1 and S2 reg, no murmurs, rubs or gallop, s/p right mastectomy Lungs: Clear, no crackles, no wheeze Abd:soft, non tender, non distended,. normal bowel sounds Ext: No edema, no clubbing, no cyanosis Neuro:Awake,alert,oriented X 3, moves all ext Psych: normal mood - Constitutional Vitals: Temp Pulse Resp BP Pulse Ox 97.7 F 83 18 123/65 100 08/18/18 09:52 08/18/18 11:00 08/18/18 10:00 08/18/18 09:52 08/18/18 09:52 Results - Labs CBC & Chem 7: 08/18/18 07:27 08/18/18 18:02 Labs: Laboratory Last Values WBC 6.8 K/mm3 (4.5-11.0) 08/18/18 07:27 RBC 3.72 M/mm3 (3.65-5.03) 08/18/18 07:27 Hgb 11.1 gm/dl (10.1-14.3) D 08/18/18 07:27 Hct 33.0 % (30.3-42.9) D 08/18/18 07:27 MCV 89 fl (79-97) 08/18/18 07:27 MCH 30 pg (28-32) 08/18/18 07:27 MCHC 34 % (30-34) 08/18/18 07:27 RDW 13.6 % (13.2-15.2) 08/18/18 07:27 Plt Count 228 K/mm3 (140-440) 08/18/18 07:27 Lymph % (Auto) 15.6 % (13.4-35.0) 08/18/18 07:27 Daniels % (Auto) 6.3 % (0.0-7.3) 08/18/18 07:27 Eos % (Auto) 1.4 % (0.0-4.3) 08/18/18 07:27 Baso % (Auto) 0.3 % (0.0-1.8) 08/18/18 07:27 Lymph # 1.1 K/mm3 (1.2-5.4) L 08/18/18 07:27 Daniels # 0.4 K/mm3 (0.0-0.8) 08/18/18 07:27 Eos # 0.1 K/mm3 (0.0-0.4) 08/18/18 07:27 Baso # 0.0 K/mm3 (0.0-0.1) 08/18/18 07:27 Seg Neutrophils % 76.4 % (40.0-70.0) H 08/18/18 07:27 Seg Neutrophils # 5.2 K/mm3 (1.8-7.7) 08/18/18 07:27 PT 11.7 Sec. (12.2-14.9) L 08/17/18 12:12 INR 0.81 (0.87-1.13) L 08/17/18 12:12 APTT 26.7 Sec. (24.2-36.6) 08/17/18 12:12 Sodium 135 mmol/L (137-145) L 08/18/18 07:27 Potassium 5.1 mmol/L (3.6-5.0) H 08/18/18 07:27 Chloride 102.0 mmol/L (98-107) 08/18/18 07:27 Carbon Dioxide 21 mmol/L (22-30) L 08/18/18 07:27 Anion Gap 17 mmol/L 08/18/18 07:27 BUN 14 mg/dL (7-17) 08/18/18 07:27 Creatinine 1.2 mg/dL (0.7-1.2) 08/18/18 07:27 Estimated GFR 45 ml/min 08/18/18 07:27 BUN/Creatinine Ratio 12 % 08/18/18 07:27 Glucose 142 mg/dL (65-100) H 08/18/18 07:27 POC Glucose 189 (70-105) H 08/18/18 12:09 Hemoglobin A1c 6.3 % (4-6) H 08/18/18 07:27 Lactic Acid 1.00 mmol/L (0.7-2.0) 08/17/18 12:12 Calcium 8.9 mg/dL (8.4-10.2) 08/18/18 07:27 Magnesium 2.10 mg/dL (1.7-2.3) 08/18/18 07:27 Iron 21 ug/dL (37-170) L 08/17/18 12:12 TIBC 283 mcg/dL (250-450) 08/17/18 12:12 Ferritin 52.3 ng/mL (13.0-400.0) 08/17/18 17:11 Total Bilirubin 0.20 mg/dL (0.1-1.2) 08/17/18 12:12 AST 12 units/L (5-40) 08/17/18 12:12 ALT 9 units/L (7-56) 08/17/18 12:12 Alkaline Phosphatase 66 units/L (35-129) 08/17/18 12:12 Total Creatine Kinase 52 units/L (30-135) 08/17/18 12:12 Troponin T < 0.010 ng/mL (0.00-0.029) 08/17/18 12:12 Total Protein 7.3 g/dL (6.3-8.2) 08/17/18 12:12 Albumin 3.7 g/dL (3.9-5) L 08/17/18 12:12 Albumin/Globulin Ratio 1.0 % 08/17/18 12:12 Triglycerides 121 mg/dL (2-149) 08/18/18 07:27 Cholesterol 171 mg/dL (50-199) 08/18/18 07:27 LDL Cholesterol Direct 123 mg/dL (50-130) 08/18/18 07:27 HDL Cholesterol 42 mg/dL (40-59) 08/18/18 07:27 Cholesterol/HDL Ratio 4.09 % 08/18/18 07:27 TSH 3.040 mlU/mL (0.270-4.200) 08/18/18 07:27 Free T4 1.24 ng/dL (0.76-1.46) 08/18/18 07:27 Urine Color Karina (Yellow) 08/17/18 14:46 Urine Turbidity Clear (Clear) 08/17/18 14:46 Urine pH 6.0 (5.0-7.0) 08/17/18 14:46 Ur Specific Fred 1.017 (1.003-1.030) 08/17/18 14:46 Urine Protein <15 mg/dl mg/dL (Negative) 08/17/18 14:46 Urine Glucose (UA) Neg mg/dL (Negative) 08/17/18 14:46 Urine Ketones Neg mg/dL (Negative) 08/17/18 14:46 Urine Blood Sm (Negative) 08/17/18 14:46 Urine Nitrite Neg (Negative) 08/17/18 14:46 Urine Bilirubin Neg (Negative) 08/17/18 14:46 Urine Urobilinogen < 2.0 mg/dL (<2.0) 08/17/18 14:46 Ur Leukocyte Esterase Neg (Negative) 08/17/18 14:46 Urine WBC (Auto) < 1.0 /HPF (0.0-6.0) 08/17/18 14:46 Urine RBC (Auto) 1.0 /HPF (0.0-6.0) 08/17/18 14:46 U Epithel Cells (Auto) < 1.0 /HPF (0-13.0) 08/17/18 14:46 Blood Type A POSITIVE 08/17/18 13:30 Antibody Screen Negative 08/17/18 13:30 Crossmatch See Detail 08/17/18 13:30 Active Medications - Current Medications Current Medications: Generic Name Dose Route Start Last Admin Trade Name Freq PRN Reason Stop Dose Admin Acetaminophen 650 mg 08/17/18 15:39 08/18/18 00:09 Tylenol PO 650 mg Q4H PRN Administration Pain MILD(1-3)/Fever >100.5/MCLAUGHLIN Amlodipine Besylate 5 mg 08/17/18 18:00 08/18/18 09:02 Norvasc PO 5 mg QDAY KELLEY Administration Dextrose 50 ml 08/17/18 17:29 D50w (25gm) Syringe IV PRN PRN Hypoglycemia Insulin Human Lispro 0 unit 08/18/18 07:30 08/18/18 12:14 Humalog SUB-Q 1 unit AC KELLEY Administration Protocol Insulin Human Lispro 0 unit 08/17/18 22:00 08/17/18 22:44 Humalog SUB-Q Not Given [facility] Protocol Morphine Sulfate 2 mg 08/17/18 15:39 08/17/18 21:51 Morphine IV 2 mg Q4H PRN Administration Pain, Moderate (4-6) Nitroglycerin 0.4 mg 08/17/18 11:46 Nitrostat SL .Q5MIN PRN Chest Pain Ondansetron HCl 4 mg 08/17/18 15:39 08/17/18 17:00 Zofran IV 4 mg Q8H PRN Administration Nausea And Vomiting Pantoprazole Sodium 40 mg 08/18/18 04:00 08/18/18 09:02 Protonix IV 40 mg BID KELLEY Administration Sodium Chloride 10 ml 08/17/18 22:00 08/18/18 09:03 Sodium Chloride Flush Syringe 10 Ml IV 10 ml BID KELLEY Administration Sodium Chloride 10 ml 08/17/18 15:39 Sodium Chloride Flush Syringe 10 Ml IV PRN PRN LINE FLUSH Sodium Polystyrene Sulfonate 30 gm 08/18/18 09:00 08/18/18 08:53 Kionex PO 08/18/18 15:01 30 gm Q6H KELLEY Administration
--- NOTE | 2018-08-18 14:49 | Gastroenterology Consultation ---
History of Present Illness - Reason for Consult Consult date: 08/18/18 anemia, abnormal imaging Requesting physician: GREGORIO BOWEN - History of Present Illness This is a 67 yo [place]isian female with pmh of HTN, DM, and h/o breast cancer s/p surgery admitted for abdominal pain for 2 weeks in the epigastric region. In the ED, she was found to have new drop in H/H with hgb down to 6.9 from prior [address] abdomen showed wall thickening of the proximal duodenum. Today, she reports continued mid and epigastric abdominal pain but no nausea/vomiting. No change in bowel habits. No blood in the stool or melena. No prior EGD or colonoscopy in the past. Past History Past Medical History: cancer (Breast cancer 10yrs), diabetes, hypertension Past Surgical History: mastectomy (Right mastectomy 10yrs ago) Social history: lives with family, full code. denies: smoking, alcohol abuse Family history: hypertension Medications and Allergies Allergies Allergy/AdvReac Type Severity Reaction Status Date / Time No Known Allergies Allergy Verified 11/07/17 00:25 Home Medications Medication Instructions Recorded Confirmed Last Taken Type Cephalexin [Keflex] 500 mg PO BID #6 capsule 11/08/17 Unknown Rx Active Meds: Active Medications Acetaminophen (Tylenol) 650 mg PO Q4H PRN PRN Reason: Pain MILD(1-3)/Fever >100.5/MCLAUGHLIN Last Admin: 08/18/18 00:09 Dose: 650 mg Documented by: Amlodipine Besylate (Norvasc) 5 mg PO QDAY [facility] Last Admin: 08/18/18 09:02 Dose: 5 mg Documented by: Dextrose (D50w (25gm) Syringe) 50 ml IV PRN PRN PRN Reason: Hypoglycemia Insulin Human Lispro (Humalog) 0 unit SUB-Q [facility]; Protocol Last Admin: 08/18/18 12:14 Dose: 1 unit Documented by: Insulin [facility]) [facility]; [facility] Last Admin: 08/17/18 22:44 Dose: Not Given Documented by: Morphine Sulfate (Morphine) 2 mg IV Q4H PRN PRN Reason: Pain, Moderate (4-6) Last Admin: 08/17/18 21:51 Dose: 2 mg Documented by: Nitroglycerin (Nitrostat) 0.4 mg SL .Q5MIN PRN PRN Reason: Chest Pain Ondansetron HCl (Zofran) 4 mg IV Q8H PRN PRN Reason: Nausea And Vomiting Last Admin: 08/17/18 17:00 Dose: 4 mg Documented by: Pantoprazole Sodium (Protonix) 40 mg IV BID [facility] Last Admin: 08/18/18 09:02 Dose: 40 mg Documented by: Sodium Chloride (Sodium Chloride Flush Syringe 10 Ml) 10 ml IV BID [facility] Last Admin: 08/18/18 09:03 Dose: 10 ml Documented by: Sodium Chloride (Sodium Chloride Flush Syringe 10 Ml) 10 ml IV PRN PRN PRN Reason: LINE FLUSH Sodium Polystyrene Sulfonate (Kionex) 30 gm PO Q6H [facility] Stop: 08/18/18 15:01 Last Admin: 08/18/18 14:19 Dose: 30 gm Documented by: Review of Systems - Review of Systems Constitutional: no weight loss, no weight gain Eyes: deferred Ears, Nose, Throat: deferred Cardiovascular: no chest pain Gastrointestinal: abdominal pain, no nausea, no vomiting, no BRBPR, no melena Neurological: weakness Psychiatric: no anxiety Endocrine: no cold intolerance Hematologic/Lymphatic: no easy bruising Allergic/Immunologic: no wheezing Exam - Constitutional Vital Signs: Temp Pulse Resp BP Pulse Ox 97.7 F 83 18 123/65 100 08/18/18 09:52 08/18/18 11:00 08/18/18 10:00 08/18/18 09:52 08/18/18 09:52 General appearance: no acute distress, well-nourished - EENT Eyes: PERRL ENT: hearing intact, clear oral mucosa, dentition normal - Neck Neck: supple, normal ROM, no masses or JVD - Respiratory Respiratory effort: normal Respiratory: bilateral: CTA - Breasts Breasts: deferred - Cardiovascular Rhythm: regular Heart Sounds: Present: S1 & S2. Absent: gallop, rub Extremities: pulses intact, No edema, normal color, Full ROM - Gastrointestinal General gastrointestinal: Present: soft, tender, non-distended, normal bowel sounds - Integumentary Integumentary: Present: clear, warm, dry - Neurologic Neurological: alert and oriented x3 - Psychiatric Psychiatric: appropriate mood/affect, intact judgment & insight, memory intact - Labs CBC & Chem 7: 08/18/18 07:27 08/18/18 07:27 Lab Results: Laboratory Results - last 24 hr 08/17/18 08/17/18 08/17/18 12:12 13:30 14:46 WBC RBC Hgb Hct MCV MCH MCHC RDW Plt Count Lymph % (Auto) Hand % (Auto) Eos % (Auto) Baso % (Auto) Lymph # Hand # Eos # Baso # Seg Neutrophils % Seg Neutrophils # Sodium Potassium Chloride Carbon Dioxide Anion Gap BUN Creatinine Estimated GFR BUN/Creatinine Ratio Glucose POC Glucose Hemoglobin A1c Calcium Magnesium Iron 21 L TIBC 283 Ferritin Triglycerides Cholesterol LDL Cholesterol Direct HDL Cholesterol Cholesterol/HDL Ratio TSH Free T4 Urine Color Karina Urine Turbidity Clear Urine pH 6.0 Ur Specific Cov[place] 1.017 Urine Protein <15 mg/dl Urine Glucose (UA) Neg Urine Ketones Neg Urine Blood Sm Urine Nitrite Neg Urine Bilirubin Neg Urine Urobilinogen < 2.0 Ur Leukocyte Esterase Neg Urine WBC (Auto) < 1.0 Urine RBC (Auto) 1.0 U Epithel Cells (Auto) < 1.0 Blood Type A POSITIVE Antibody Screen Negative Crossmatch See Detail 08/17/18 08/17/18 08/17/18 17:11 18:53 22:05 WBC RBC Hgb Hct MCV MCH MCHC RDW Plt Count Lymph % (Auto) Hand % (Auto) Eos % (Auto) Baso % (Auto) Lymph # Hand # Eos # Baso # Seg Neutrophils % Seg Neutrophils # Sodium Potassium Chloride Carbon Dioxide Anion Gap BUN Creatinine Estimated GFR BUN/Creatinine Ratio Glucose POC Glucose 104 177 H Hemoglobin A1c Calcium Magnesium Iron TIBC Ferritin 52.3 Triglycerides Cholesterol LDL Cholesterol Direct HDL Cholesterol Cholesterol/HDL Ratio TSH Free T4 Urine Color Urine Turbidity Urine pH Ur Specific Cov[place] Urine Protein Urine Glucose (UA) Urine Ketones Urine Blood Urine Nitrite Urine Bilirubin Urine Urobilinogen Ur Leukocyte Esterase Urine WBC (Auto) Urine RBC (Auto) U Epithel Cells (Auto) Blood Type Antibody Screen Crossmatch 08/17/18 08/18/18 08/18/18 23:26 07:27 07:27 WBC 6.8 RBC 3.72 Hgb 11.1 D Hct 33.0 D MCV 89 MCH 30 MCHC 34 RDW 13.6 Plt Count 228 Lymph % (Auto) 15.6 Hand % (Auto) 6.3 Eos % (Auto) 1.4 Baso % (Auto) 0.3 Lymph # 1.1 L Hand # 0.4 Eos # 0.1 Baso # 0.0 Seg Neutrophils % 76.4 H Seg Neutrophils # 5.2 Sodium 136 L 135 L Potassium 5.2 H 5.1 H Chloride 103.0 102.0 Carbon Dioxide 22 21 L Anion Gap 16 17 BUN 14 14 Creatinine 1.1 1.2 Estimated GFR 50 45 BUN/Creatinine Ratio 13 12 Glucose 149 H 142 H POC Glucose Hemoglobin A1c Calcium 8.9 8.9 Magnesium 2.10 Iron TIBC Ferritin Triglycerides 121 Cholesterol 171 LDL Cholesterol Direct 123 HDL Cholesterol 42 Cholesterol/HDL Ratio 4.09 TSH Free T4 Urine Color Urine Turbidity Urine pH Ur Specific [place] Urine Protein Urine Glucose (UA) Urine Ketones Urine Blood Urine Nitrite Urine Bilirubin Urine Urobilinogen Ur Leukocyte Esterase Urine WBC (Auto) Urine RBC (Auto) U Epithel Cells (Auto) Blood Type Antibody Screen Crossmatch 08/18/18 08/18/18 08/18/18 07:27 07:27 07:27 WBC RBC Hgb Hct MCV MCH MCHC RDW Plt Count Lymph % (Auto) Hand % (Auto) Eos % (Auto) Baso % (Auto) Lymph # Hand # Eos # Baso # Seg Neutrophils % Seg Neutrophils # Sodium Potassium Chloride Carbon Dioxide Anion Gap BUN Creatinine Estimated GFR BUN/Creatinine Ratio Glucose POC Glucose Hemoglobin A1c 6.3 H Calcium Magnesium Iron TIBC Ferritin Triglycerides Cholesterol LDL Cholesterol Direct HDL Cholesterol Cholesterol/HDL Ratio TSH 3.040 Free T4 1.24 Urine Color Urine Turbidity Urine pH Ur Specific [place] Urine Protein Urine Glucose (UA) Urine Ketones Urine Blood Urine Nitrite Urine Bilirubin Urine Urobilinogen Ur Leukocyte Esterase Urine WBC (Auto) Urine RBC (Auto) U Epithel Cells (Auto) Blood Type Antibody Screen Crossmatch 08/18/18 08/18/18 07:42 12:09 WBC RBC Hgb Hct MCV MCH MCHC RDW Plt Count Lymph % (Auto) Hand % (Auto) Eos % (Auto) Baso % (Auto) Lymph # Hand # Eos # Baso # Seg Neutrophils % Seg Neutrophils # Sodium Potassium Chloride Carbon Dioxide Anion Gap BUN Creatinine Estimated GFR BUN/Creatinine Ratio Glucose POC Glucose 130 H 189 H Hemoglobin A1c Calcium Magnesium Iron TIBC Ferritin Triglycerides Cholesterol LDL Cholesterol Direct HDL Cholesterol Cholesterol/HDL Ratio TSH Free T4 Urine Color Urine Turbidity Urine pH Ur Specific [place] Urine Protein Urine Glucose (UA) Urine Ketones Urine Blood Urine Nitrite Urine Bilirubin Urine Urobilinogen Ur Leukocyte Esterase Urine WBC (Auto) Urine RBC (Auto) U Epithel Cells (Auto) Blood Type Antibody Screen Crossmatch - Imaging CT Scan: report reviewed Assessment and Plan New onset abdominal pain and anemia. - CT results reviewed, remarkable mainly for the wall thickening of duodenum, concerning for PUD, duodenal ulcer or duodenitis. - suspect PUD. Rec: - monitor H/H. - continue with PPI. - will plan for EGD tomorrow. - keep NPO MN. - avoid NSAIDs. Reviewed patient's current medication - Patient Problems (1) Abdominal pain Current Visit: Yes Status: Acute (2) Anemia Current Visit: Yes Status: Acute
[2018-08-18 19:26] LABS: Calcium 9.1 mg/dL (8.4-10.2)
--- NOTE | 2018-08-18 20:50 | Event Note ---
Date: 08/17/18 [id number]
--- NOTE | 2018-08-19 02:15 | Consultation ---
REFERRING PHYSICIAN: Levon Hernandez MD REASON FOR CONSULTATION: Anemia. HISTORY OF PRESENT ILLNESS: I saw the patient, a 67-year-old female in the medical floor. The patient has a history of right breast cancer, for which she had treatment done in [place] 10 years ago. The patient also has history of diabetes and hypertension. For the cancer, she underwent right mastectomy, other details not available. She came to the hospital because of generalized weakness and abdominal pain for a few weeks' time. Hemoglobin was found to be 6.9. The patient received transfusion support. In the past in 2018, hemoglobin was 11 and later 9. GI has been consulted at this time. No headache at this time. Most of the information is coming from the medical records. The patient's niece is present in the room. As per the history information available, history of abdominal pain present and weakness present. No hematemesis, no hematochezia. During this admission, CT of abdomen was done, which showed narrowing of abdominal aorta with occlusion of bilateral common femoral arteries. The patient was seen by vascular surgeon. PAST MEDICAL HISTORY: As above. PAST SURGICAL HISTORY: Mastectomy. SOCIAL HISTORY: Lives with family members. FAMILY HISTORY: Hypertension. ALLERGIES: None. HOME MEDICATIONS: Include Keflex. PRESENT MEDICATIONS: Include Tylenol, amlodipine, insulin, ondansetron. PHYSICAL EXAMINATION: VITAL SIGNS: Temperature is 99, pulse 90, respirations 20, BP 164/82. HEENT: Pallor present. No icterus. NECK: No neck lymph nodes. HEART: S1, S2. LUNGS: Clear to auscultation anteriorly. ABDOMEN: Soft. No guarding. EXTREMITIES: No calf tenderness. NEUROLOGIC: Alert, awake, follows simple commands appropriately. LABORATORY DATA: White cell 9, hemoglobin 6.9, MCV 87, platelets 253. Creatinine 1.1, calcium ____. Serum iron 21. UA, blood small. RADIOLOGY DATA: CT abdomen was done, which showed normal liver, findings suspicion for duodenitis, peptic ulcer disease and CT shows narrowing of distal abdominal aorta with occlusion of bilateral common iliac artery. ASSESSMENT: 1. Anemia. Serum iron studies show low iron. This may be secondary to bleed. MCV is normal. Blood transfusion has been given. We will look into iron support. Seen by GI team. Radiology mentioned there is possibility of duodenitis ____ radiology mentioned aorta narrowing, seen by Vascular team. 2. History of diabetes. 3. History of hypertension. 4. History of right breast cancer, status post mastectomy in [place] as per niece. Other details not available. This treatment was 10 years ago. 5. History of left chest port placement, which was removed. At this time, we will follow the patient. JOB# [id number] NM/NTS
[2018-08-19] MEDS: TYLENOL PO PRN (02:56)
[2018-08-19] MEDS: HumaLOG SUB-Q SCH ×4 (07:30→21:50)
--- NOTE | 2018-08-19 07:45 | Hem/Onc Progress Note ---
Assessment and Plan 1. Anemia. Serum iron studies show low iron. This may be secondary to bleed. MCV is normal. Blood transfusion has been given. We will look into iron support. Seen by GI team. Radiology mentioned there is possibility of duodenitis ____ radiology mentioned aorta narrowing, seen by Vascular team. 2. History of diabetes. 3. History of hypertension. 4. History of right breast cancer, status post mastectomy in [place] as per niece. Other details not available. This treatment was 10 years ago. 5. History of left chest port placement, which was removed. At this time, we will follow the patient. IV iron Subjective Date of service: 08/19/18 Principal diagnosis: anemia Objective - Constitutional Vitals: Last Vital Signs Temp 98.0 F 08/19/18 01:58 Pulse 86 08/19/18 03:00 Resp 16 08/19/18 03:56 BP 140/75 08/19/18 01:58 Pulse Ox 96 08/19/18 01:58 Pain Intensity (0-10): denies any pain General appearance: mild distress Performance status: 3-limited selfcare - EENT Eyes: EOM intact ENT: clear oral mucosa Lymph node exam: negative cervical - Neck Neck: normal ROM - Respiratory Respiratory effort: Positive: normal Respiratory: bilateral: CTA - Cardiovascular Heart Sounds: Present: S1 & S2 Extremities: No edema - Gastrointestinal General gastrointestinal: Present: soft, non-tender Rectal Exam: deferred - Genitourinary Female genitourinary: Present: deferred - Integumentary Integumentary: warm - Musculoskeletal Musculoskeletal: strength equal bilaterally - Neurologic Neurologic: moves all extremities - Labs Lab Results: Laboratory Results - last 24 hr 08/18/18 08/18/18 08/18/18 07:27 07:27 07:27 WBC 6.8 RBC 3.72 Hgb 11.1 D Hct 33.0 D MCV 89 MCH 30 MCHC 34 RDW 13.6 Plt Count 228 Lymph % (Auto) 15.6 Tripp % (Auto) 6.3 Eos % (Auto) 1.4 Baso % (Auto) 0.3 Lymph # 1.1 L Tripp # 0.4 Eos # 0.1 Baso # 0.0 Seg Neutrophils % 76.4 H Seg Neutrophils # 5.2 Sodium 135 L Potassium 5.1 H Chloride 102.0 Carbon Dioxide 21 L Anion Gap 17 BUN 14 Creatinine 1.2 Estimated GFR 45 BUN/Creatinine Ratio 12 Glucose 142 H POC Glucose Hemoglobin A1c Calcium 8.9 Magnesium 2.10 Triglycerides 121 Cholesterol 171 LDL Cholesterol Direct 123 HDL Cholesterol 42 Cholesterol/HDL Ratio 4.09 TSH Free T4 1.24 08/18/18 08/18/18 08/18/18 07:27 07:27 12:09 WBC RBC Hgb Hct MCV MCH MCHC RDW Plt Count Lymph % (Auto) Tripp % (Auto) Eos % (Auto) Baso % (Auto) Lymph # Tripp # Eos # Baso # Seg Neutrophils % Seg Neutrophils # Sodium Potassium Chloride Carbon Dioxide Anion Gap BUN Creatinine Estimated GFR BUN/Creatinine Ratio Glucose POC Glucose 189 H Hemoglobin A1c 6.3 H Calcium Magnesium Triglycerides Cholesterol LDL Cholesterol Direct HDL Cholesterol Cholesterol/HDL Ratio TSH 3.040 Free T4 08/18/18 08/18/18 08/18/18 17:23 18:02 22:04 WBC RBC Hgb Hct MCV MCH MCHC RDW Plt Count Lymph % (Auto) Tripp % (Auto) Eos % (Auto) Baso % (Auto) Lymph # Tripp # Eos # Baso # Seg Neutrophils % Seg Neutrophils # Sodium 141 Potassium 4.6 Chloride 103.5 Carbon Dioxide 20 L Anion Gap 22 BUN 12 Creatinine 1.2 Estimated GFR 45 BUN/Creatinine Ratio 10 Glucose 162 H POC Glucose 105 108 H Hemoglobin A1c Calcium 9.1 Magnesium Triglycerides Cholesterol LDL Cholesterol Direct HDL Cholesterol Cholesterol/HDL Ratio TSH Free T4 08/19/18 07:16 WBC RBC Hgb Hct MCV MCH MCHC RDW Plt Count Lymph % (Auto) Tripp % (Auto) Eos % (Auto) Baso % (Auto) Lymph # Tripp # Eos # Baso # Seg Neutrophils % Seg Neutrophils # Sodium Potassium Chloride Carbon Dioxide Anion Gap BUN Creatinine Estimated GFR BUN/Creatinine Ratio Glucose POC Glucose 100 Hemoglobin A1c Calcium Magnesium Triglycerides Cholesterol LDL Cholesterol Direct HDL Cholesterol Cholesterol/HDL Ratio TSH Free T4 Medications & Allergies - Medications Allergies/Adverse Reactions: Allergies No Known Allergies Allergy (Verified 11/07/17 00:25) Home Medications: Home Medications Medication Instructions Recorded Confirmed Last Taken Type Cephalexin [Keflex] 500 mg PO BID #6 capsule 11/08/17 08/18/18 Unknown Rx Active Medications: Generic Name Dose Route Start Last Admin Trade Name Freq PRN Reason Stop Dose Admin Acetaminophen 650 mg 08/17/18 15:39 08/19/18 02:56 Tylenol PO 650 mg Q4H PRN Administration Pain MILD(1-3)/Fever >100.5/MCLAUGHLIN Amlodipine Besylate 5 mg 08/17/18 18:00 08/18/18 09:02 Norvasc PO 5 mg QDAY KELLEY Administration Dextrose 50 ml 08/17/18 17:29 D50w (25gm) Syringe IV PRN PRN Hypoglycemia Ferrous Gluconate 324 mg 08/19/18 10:00 Fergon PO QDAY [facility] Insulin Human Lispro 0 unit 08/18/18 07:30 08/19/18 07:30 Humalog SUB-Q Not Given AC [facility] Protocol Insulin Human Lispro 0 unit 08/17/18 22:00 08/18/18 22:40 [facility] Morphine Sulfate 2 mg 08/17/18 15:39 08/17/18 21:51 Morphine IV 2 mg Q4H PRN Administration Pain, Moderate (4-6) Nitroglycerin 0.4 mg 08/17/18 11:46 Nitrostat SL .Q5MIN PRN Chest Pain Ondansetron HCl 4 mg 08/17/18 15:39 08/17/18 17:00 Zofran IV 4 mg Q8H PRN Administration Nausea And Vomiting Pantoprazole Sodium 40 mg 08/18/18 04:00 08/18/18 22:40 Protonix IV 40 mg BID KELLEY Administration Sodium Chloride 10 ml 08/17/18 22:00 08/18/18 22:40 Sodium Chloride Flush Syringe 10 Ml IV 10 ml BID KELLEY Administration Sodium Chloride 10 ml 08/17/18 15:39 Sodium Chloride Flush Syringe 10 Ml IV PRN PRN LINE FLUSH
[2018-08-19 09:17] LABS: Hematocrit 33.5 % (30.3-42.9); Hemoglobin 11.2 gm/dl (10.1-14.3); Mean Corpuscular HGB Conc 34 % (30-34); Mean Corpuscular Volume 88 fl (79-97); Platelet Count 285 K/mm3 (140-440); Red Blood Count 3.81 M/mm3 (3.65-5.03); Red Cell Distribution Width 13.7 % (13.2-15.2)
[2018-08-19] MEDS: PROTONIX IV SCH ×2 (09:27→21:50)
[2018-08-19] MEDS: FERGON PO SCH (09:27)
[2018-08-19] MEDS: SODIUM CHLORIDE FLUSH SYRINGE 10 ML IV SCH ×2 (09:29→21:50)
[2018-08-19] MEDS: NORVASC PO SCH (09:32)
[2018-08-19 09:40] LABS: Calcium 9.1 mg/dL (8.4-10.2)
[2018-08-19] MEDS ORDERED: NACL 0.9% 1000 ML 1,000 ML IV SCH (15:00)
[2018-08-19] MEDS ORDERED: DIPRIVAN 10 MG/ML IV ONE (15:43)
[2018-08-19] MEDS ORDERED: XYLOCAINE 2% INFILTRATI ONE (15:43)
[2018-08-19] MEDS ORDERED: NACL 0.9% 1000 ML 1,000 ML ONE (15:53)
[2018-08-19] MEDS ORDERED: WATER FOR IRRIG STERILE IR ONE (15:55)
--- NOTE | 2018-08-19 16:38 | Operative Report ---
Operative Report Operative Report: Date of procedure: 08/19/2018 Procedure: Esophagogastroduodenoscopy Preprocedure diagnosis: anemia, abdominal pain Post procedure diagnosis: duodenal bulb ulcer, gastritis Endoscopist: Tito Wasserman MD Anesthesia: Monitored anesthesia care per anesthesia department Medications: Propofol per anesthesia Estimated blood loss: 0 After careful discussion of the nature and purpose of the procedure as well as details the technique risks benefits and alternatives consent was obtained. The patient was placed in the left lateral decubitus position and medicated per anesthesia. The tip of the Perfect Channel EQ 570 video scope was passed per orum under direct vision into the esophagus and advanced into the stomach and 2nd part of the duodenum. The duodenal bulb revealed deep ulcer without active bleeding but difficult to visualize clearly due to edema of surrounding mucosa. The scope was able to traverse this area and advance to the 2nd part of the duodenum, which appeared normal. The scope was withdrawn into the stomach and the stomach then gently insufflated with air. The antrum revealed gastritis with erythematous mucosa. The stomach was further insufflated and the scope was then retroflexed and partially withdrawn. The cardia and fundus appeared normal. The scope was then withdrawn in the forward position. The esophagogastric junction was at 36 cm. There was a small hiatal hernia. The procedure was well tolerated and the patient was observed in recovery. Impressions: 1. Deep ulcer in the duodenal bulb along with edema of the surrounding mucosa causing narrowing of the lumen but no complete obstruction. 2. Antral gastritis Plan: 1. Can resume diet with clear liquids. 2. Monitor H/H. 3. Continue protonix for 48 hours and then switch to PO bid dosing for 6 weeks. 4. Follow up outpatient clinic to check on H pylori status. 5. Avoid NSAIDs. 6. Due to the duodenal ulcer, recommend to avoid anticoagulation to allow for healing.
--- NOTE | 2018-08-19 17:32 | Progress Note ---
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 She states No intervention necessary Hypertension Monitor BP Diabetes mellitus type 2, Fingerstick glucose before meals and at bedtime Hyponatremia. Resolved Hypomagnesemia Resolved after replacement History of breast cancer s/p right mastectomy about 10 yrs ago DVT prophylaxis with SCDs only. No chemical anticoagulation because of unexplained anemia Full code status History Interval history: Gen weakness For EGD today Hospitalist Physical - Physical exam Narrative exam: GEN: Not in acute distress, lying in bed, HEENT: Normocephalic, atraumatic, Neck: supple, No JVD heart: S1 and S2 reg, no murmurs, rubs or gallop, s/p right mastectomy Lungs: Clear, no crackles, no wheeze Abd:soft, non tender, non distended,. normal bowel sounds Ext: No edema, no clubbing, no cyanosis Neuro:Awake,alert,oriented X 3, moves all ext Psych: normal mood - Constitutional Vitals: Temp Pulse Resp BP Pulse Ox 98.8 F 97 H 20 99/57 97 08/19/18 16:08 08/19/18 16:38 08/19/18 16:38 08/19/18 16:38 08/19/18 16:38 Results - Labs CBC & Chem 7: 08/19/18 08:15 08/19/18 08:15 Labs: Laboratory Last Values WBC 6.6 K/mm3 (4.5-11.0) 08/19/18 08:15 RBC 3.81 M/mm3 (3.65-5.03) 08/19/18 08:15 Hgb 11.2 gm/dl (10.1-14.3) 08/19/18 08:15 Hct 33.5 % (30.3-42.9) 08/19/18 08:15 MCV 88 fl (79-97) 08/19/18 08:15 MCH 30 pg (28-32) 08/19/18 08:15 MCHC 34 % (30-34) 08/19/18 08:15 RDW 13.7 % (13.2-15.2) 08/19/18 08:15 Plt Count 285 K/mm3 (140-440) 08/19/18 08:15 Lymph % (Auto) 15.6 % (13.4-35.0) 08/18/18 07:27 [place] % (Auto) 6.3 % (0.0-7.3) 08/18/18 07:27 Eos % (Auto) 1.4 % (0.0-4.3) 08/18/18 07:27 Baso % (Auto) 0.3 % (0.0-1.8) 08/18/18 07:27 Lymph # 1.1 K/mm3 (1.2-5.4) L 08/18/18 07:27 Newton # 0.4 K/mm3 (0.0-0.8) 08/18/18 07:27 Eos # 0.1 K/mm3 (0.0-0.4) 08/18/18 07:27 Baso # 0.0 K/mm3 (0.0-0.1) 08/18/18 07:27 Seg Neutrophils % 76.4 % (40.0-70.0) H 08/18/18 07:27 Seg Neutrophils # 5.2 K/mm3 (1.8-7.7) 08/18/18 07:27 PT 11.7 Sec. (12.2-14.9) L 08/17/18 12:12 INR 0.81 (0.87-1.13) L 08/17/18 12:12 APTT 26.7 Sec. (24.2-36.6) 08/17/18 12:12 Sodium 140 mmol/L (137-145) 08/19/18 08:15 Potassium 4.2 mmol/L (3.6-5.0) 08/19/18 08:15 Chloride 102.6 mmol/L (98-107) 08/19/18 08:15 Carbon Dioxide 22 mmol/L (22-30) 08/19/18 08:15 Anion Gap 20 mmol/L 08/19/18 08:15 BUN 14 mg/dL (7-17) 08/19/18 08:15 Creatinine 1.2 mg/dL (0.7-1.2) 08/19/18 08:15 Estimated GFR 45 ml/min 08/19/18 08:15 BUN/Creatinine Ratio 12 % 08/19/18 08:15 Glucose 115 mg/dL (65-100) H 08/19/18 08:15 POC Glucose 73 (70-105) 08/19/18 17:12 Hemoglobin A1c 6.3 % (4-6) H 08/18/18 07:27 Lactic Acid 1.00 mmol/L (0.7-2.0) 08/17/18 12:12 Calcium 9.1 mg/dL (8.4-10.2) 08/19/18 08:15 Magnesium 2.10 mg/dL (1.7-2.3) 08/18/18 07:27 Iron 21 ug/dL (37-170) L 08/17/18 12:12 TIBC 283 mcg/dL (250-450) 08/17/18 12:12 Ferritin 52.3 ng/mL (13.0-400.0) 08/17/18 17:11 Total Bilirubin 0.20 mg/dL (0.1-1.2) 08/17/18 12:12 AST 12 units/L (5-40) 08/17/18 12:12 ALT 9 units/L (7-56) 08/17/18 12:12 Alkaline Phosphatase 66 units/L (35-129) 08/17/18 12:12 Total Creatine Kinase 52 units/L (30-135) 08/17/18 12:12 Troponin T < 0.010 ng/mL (0.00-0.029) 08/17/18 12:12 Total Protein 7.3 g/dL (6.3-8.2) 08/17/18 12:12 Albumin 3.7 g/dL (3.9-5) L 08/17/18 12:12 Albumin/Globulin Ratio 1.0 % 08/17/18 12:12 Triglycerides 121 mg/dL (2-149) 08/18/18 07:27 Cholesterol 171 mg/dL (50-199) 08/18/18 07:27 LDL Cholesterol Direct 123 mg/dL (50-130) 08/18/18 07:27 HDL Cholesterol 42 mg/dL (40-59) 08/18/18 07:27 Cholesterol/HDL Ratio 4.09 % 08/18/18 07:27 TSH 3.040 mlU/mL (0.270-4.200) 08/18/18 07:27 Free T4 1.24 ng/dL (0.76-1.46) 08/18/18 07:27 Urine Color Karina (Yellow) 08/17/18 14:46 Urine Turbidity Clear (Clear) 08/17/18 14:46 Urine pH 6.0 (5.0-7.0) 08/17/18 14:46 Ur Specific [place] 1.017 (1.003-1.030) 08/17/18 14:46 Urine Protein <15 mg/dl mg/dL (Negative) 08/17/18 14:46 Urine Glucose (UA) Neg mg/dL (Negative) 08/17/18 14:46 Urine Ketones Neg mg/dL (Negative) 08/17/18 14:46 Urine Blood Sm (Negative) 08/17/18 14:46 Urine Nitrite Neg (Negative) 08/17/18 14:46 Urine Bilirubin Neg (Negative) 08/17/18 14:46 Urine Urobilinogen < 2.0 mg/dL (<2.0) 08/17/18 14:46 Ur Leukocyte Esterase Neg (Negative) 08/17/18 14:46 Urine WBC (Auto) < 1.0 /HPF (0.0-6.0) 08/17/18 14:46 Urine RBC (Auto) 1.0 /HPF (0.0-6.0) 08/17/18 14:46 U Epithel Cells (Auto) < 1.0 /HPF (0-13.0) 08/17/18 14:46 Blood Type A POSITIVE 08/17/18 13:30 Antibody Screen Negative 08/17/18 13:30 Crossmatch See Detail 08/17/18 13:30 Active Medications - Current Medications Current Medications: Generic Name Dose Route Start Last Admin Trade Name Freq PRN Reason Stop Dose Admin Acetaminophen 650 mg 08/17/18 15:39 08/19/18 02:56 Tylenol PO 650 mg Q4H PRN Administration Pain MILD(1-3)/Fever >100.5/MCLAUGHLIN Amlodipine Besylate 5 mg 08/17/18 18:00 08/19/18 09:32 Norvasc PO 5 mg QDAY KELLEY Administration Dextrose 50 ml 08/17/18 17:29 D50w (25gm) Syringe IV PRN PRN Hypoglycemia Ferrous Gluconate 324 mg 08/19/18 10:00 08/19/18 09:27 Fergon PO 324 mg QDAY KELLEY Administration Sodium Chloride 1,000 mls @ 50 mls/hr 08/19/18 15:00 08/19/18 15:00 Nacl 0.9% 1000 Ml IV 50 mls/hr DIRECT KELLEY Administration Insulin Human Lispro 0 unit 08/18/18 07:30 08/19/18 17:13 Humalog SUB-Q Not Given AC KELLEY Protocol Insulin Human Lispro 0 unit 08/17/18 22:00 08/18/18 22:40 [facility]Q [facility] Morphine Sulfate 2 mg 08/17/18 15:39 08/17/18 21:51 Morphine IV 2 mg Q4H PRN Administration Pain, Moderate (4-6) Nitroglycerin 0.4 mg 08/17/18 11:46 Nitrostat SL .Q5MIN PRN Chest Pain Ondansetron HCl 4 mg 08/17/18 15:39 08/17/18 17:00 Zofran IV 4 mg Q8H PRN Administration Nausea And Vomiting Pantoprazole Sodium 40 mg 08/18/18 04:00 08/19/18 09:27 Protonix IV 40 mg BID KELLEY Administration Sodium Chloride 10 ml 08/17/18 22:00 08/19/18 09:29 Sodium Chloride Flush Syringe 10 Ml IV 10 ml BID KELLEY Administration Sodium Chloride 10 ml 08/17/18 15:39 Sodium Chloride Flush Syringe 10 Ml IV PRN PRN LINE FLUSH
[2018-08-20 05:25] LABS: Hematocrit 34.6 % (30.3-42.9); Hemoglobin 11.6 gm/dl (10.1-14.3); Mean Corpuscular HGB Conc 33 % (30-34); Mean Corpuscular Volume 88 fl (79-97); Platelet Count 288 K/mm3 (140-440); Red Blood Count 3.92 M/mm3 (3.65-5.03); Red Cell Distribution Width 13.6 % (13.2-15.2)
[2018-08-20] MEDS: HumaLOG SUB-Q SCH ×2 (07:39→11:32)
--- NOTE | 2018-08-20 07:50 | Hem/Onc Progress Note ---
Assessment and Plan 1. Anemia. Serum iron studies show low iron. This may be secondary to bleed. MCV is normal. Blood transfusion has been given. We will look into iron support. Seen by GI team. Radiology mentioned there is possibility of duodenitis ____ radiology mentioned aorta narrowing, seen by Vascular team. 2. History of diabetes. 3. History of hypertension. 4. History of right breast cancer, status post mastectomy in [place] as per niece. Other details not available. This treatment was 10 years ago. 5. History of left chest port placement, which was removed. At this time, we will follow the patient. IV iron s/p egd OP follow up an option - Patient Problems (1) Anemia Status: Acute Qualifiers: Anemia type: iron deficiency Subjective Date of service: 08/20/18 Principal diagnosis: anemia Interval history: s/p EGD Objective - Constitutional Vitals: Last Vital Signs Temp 97.5 F L 08/20/18 02:22 Pulse 83 08/20/18 02:00 Resp 20 08/20/18 02:22 BP 134/62 08/20/18 02:22 Pulse Ox 98 08/19/18 22:00 Pain Intensity (0-10): denies any pain General appearance: no acute distress Performance status: 3-limited selfcare - EENT Eyes: EOM intact ENT: clear oral mucosa Lymph node exam: negative cervical - Neck Neck: normal ROM - Respiratory Respiratory effort: Positive: normal Respiratory: bilateral: CTA - Cardiovascular Heart Sounds: Present: S1 & S2 Extremities: No edema - Gastrointestinal General gastrointestinal: Present: soft, non-tender Rectal Exam: deferred - Genitourinary Female genitourinary: Present: deferred - Integumentary Integumentary: warm - Musculoskeletal Musculoskeletal: strength equal bilaterally - Neurologic Neurologic: moves all extremities - Labs Lab Results: Laboratory Results - last 24 hr 08/19/18 08/19/18 08/19/18 08:15 08:15 11:24 WBC 6.6 RBC 3.81 Hgb 11.2 Hct 33.5 MCV 88 MCH 30 MCHC 34 RDW 13.7 Plt Count 285 Sodium 140 Potassium 4.2 Chloride 102.6 Carbon Dioxide 22 Anion Gap 20 BUN 14 Creatinine 1.2 Estimated GFR 45 BUN/Creatinine Ratio 12 Glucose 115 H POC Glucose 104 Calcium 9.1 08/19/18 08/19/18 08/19/18 16:20 17:12 21:45 WBC RBC Hgb Hct MCV MCH MCHC RDW Plt Count Sodium Potassium Chloride Carbon Dioxide Anion Gap BUN Creatinine Estimated GFR BUN/Creatinine Ratio Glucose POC Glucose 81 73 198 H Calcium 08/20/18 08/20/18 05:10 07:22 WBC 8.2 RBC 3.92 Hgb 11.6 Hct 34.6 MCV 88 MCH 30 MCHC 33 RDW 13.6 Plt Count 288 Sodium Potassium Chloride Carbon Dioxide Anion Gap BUN Creatinine Estimated GFR BUN/Creatinine Ratio Glucose POC Glucose 112 H Calcium Medications & Allergies - Medications Allergies/Adverse Reactions: Allergies No Known Allergies Allergy (Verified 11/07/17 00:25) Home Medications: Home Medications Medication Instructions Recorded Confirmed Last Taken Type Cephalexin [Keflex] 500 mg PO BID #6 capsule 11/08/17 08/18/18 Unknown Rx Ferrous Gluconate [Fergon 325 MG 324 mg PO QDAY #30 tablet 08/20/18 Unknown Rx tab] Pantoprazole [Protonix TAB] 40 mg PO BID #40 tablet 08/20/18 Unknown Rx amLODIPine [Norvasc] 5 mg PO QDAY #30 tablet 08/20/18 Unknown Rx Active Medications: Generic Name Dose Route Start Last Admin Trade Name Freq PRN Reason Stop Dose Admin Acetaminophen 650 mg 08/17/18 15:39 08/19/18 02:56 Tylenol PO 650 mg Q4H PRN Administration Pain MILD(1-3)/Fever >100.5/MCLAUGHLIN Amlodipine Besylate 5 mg 08/17/18 18:00 08/19/18 09:32 Norvasc PO 5 mg QDAY KELLEY Administration Dextrose 50 ml 08/17/18 17:29 D50w (25gm) Syringe IV PRN PRN Hypoglycemia Ferrous Gluconate 324 mg 08/19/18 10:00 08/19/18 09:27 Fergon PO 324 mg QDAY KELLEY Administration Sodium Chloride 1,000 mls @ 50 mls/hr 08/19/18 15:00 08/19/18 15:00 Nacl 0.9% 1000 Ml IV 50 mls/hr DIRECT KELLEY Administration Insulin Human Lispro 0 unit 08/18/18 07:30 08/20/18 07:39 Humalog SUB-Q Not Given AC [facility] Protocol Insulin Human Lispro 0 unit 08/17/18 22:00 08/19/18 21:50 Humalog SUB-Q 1 unit QHS KELLEY Administration Protocol Morphine Sulfate 2 mg 08/17/18 15:39 08/17/18 21:51 Morphine IV 2 mg Q4H PRN Administration Pain, Moderate (4-6) Nitroglycerin 0.4 mg 08/17/18 11:46 Nitrostat SL .Q5MIN PRN Chest Pain Ondansetron HCl 4 mg 08/17/18 15:39 08/17/18 17:00 Zofran IV 4 mg Q8H PRN Administration Nausea And Vomiting Pantoprazole Sodium 40 mg 08/18/18 04:00 08/19/18 21:50 Protonix IV 40 mg BID KELLEY Administration Sodium Chloride 10 ml 08/17/18 22:00 08/19/18 21:50 Sodium Chloride Flush Syringe 10 Ml IV 10 ml BID KELLEY Administration Sodium Chloride 10 ml 08/17/18 15:39 Sodium Chloride Flush Syringe 10 Ml IV PRN PRN LINE FLUSH
[2018-08-20] MEDS: FERGON PO SCH (09:12)
[2018-08-20] MEDS: NORVASC PO SCH (09:13)
[2018-08-20] MEDS: PROTONIX IV SCH (09:14)
[2018-08-20] MEDS: SODIUM CHLORIDE FLUSH SYRINGE 10 ML IV SCH (09:15)
[2018-08-20 09:17] VITALS: BP 143/70
--- NOTE | 2018-08-20 10:39 | Discharge Summary ---
Providers - Providers Date of Admission: 08/17/18 15:39 Date of discharge: 08/20/18 Attending physician: JOHN KIRKLAND 08/17/18 15:04 Consult to Physician [CONS] Urgent Comment: Consulting Provider: PENELOPE CHAU Physician Instructions: Reason For Exam: gi bleed 08/17/18 15:05 Consult to Physician [CONS] Urgent Comment: Consulting Provider: LORENA DSOUZA Physician Instructions: Reason For Exam: aortic stenosis 08/17/18 16:59 Consult to Physician [CONS] Routine Comment: Consulting Provider: ALEXANDREA PACHECO Physician Instructions: Reason For Exam: Anemia hgb 6.9, stool occult neg 08/20/18 07:40 Physical Therapy Evaluation and Treat [CONS] Routine Comment: Reason For Exam: weakness Primary care physician: INFORMATION ASSURANCE ANALYST Hospitalization Reason for admission: New onset abdominal pain and anemia. Condition: Good Hospital course: This is a 67 yo [place] female with pmh of HTN, DM, and h/o breast cancer s/p surgery admitted for abdominal pain for 2 weeks in the epigastric region. In the ED, she was found to have new drop in H/H with hgb down to 6.9 from prior [address] abdomen showed wall thickening of the proximal duodenum. The patient described mid and epigastric abdominal pain but no nausea/vomiting. No change in bowel habits. No blood in the stool or melena. No prior EGD or colonoscopy in the past. GI saw the patient in consultation and performed EGD which revealed deep ulcer in the duodenal bulb along with edema causing narrowing of the lumen but no complete obstruction and antral gastritis. GI recommended resuming diet and Protonix twice a day 6 weeks. Follow-up GI as an outpatient. Avoid NSAIDS and no anticoagulation for now. Patient had no is sues exception of hyperkalemia on admission that was treated with Calcium gluconate, Insulin, Kayexalate with resolution. Dedicated discharge time 32 minutes. Disposition: - TO HOME OR SELFCARE Time spent for discharge: 32 - Discharge Diagnoses (1) Abdominal pain Status: Acute (2) Anemia Status: Acute (3) Acute kidney injury Status: Acute (4) Generalized weakness Status: Acute (5) Nausea and vomiting Status: Acute Qualifiers: Vomiting type: unspecified Vomiting Intractability: non-intractable Qualified Code(s): R11.2 - Nausea with vomiting, unspecified Core Measure Documentation - Palliative Care Palliative Care/ Comfort Measures: Not Applicable - Core Measures Any of the following diagnoses?: none Exam - Constitutional Vitals: Temp Pulse Resp BP Pulse Ox 98.0 F 92 H 20 143/70 100 08/20/18 07:17 08/20/18 10:00 08/20/18 10:00 08/20/18 09:13 08/20/18 10:00 General appearance: Present: no acute distress, well-nourished - EENT Eyes: Present: PERRL ENT: hearing intact, clear oral mucosa - Neck Neck: Present: supple, normal ROM - Respiratory Respiratory effort: normal Respiratory: bilateral: CTA - Cardiovascular Heart Sounds: Present: S1 & S2. Absent: rub, click - Extremities Extremities: pulses symmetrical, No edema Peripheral Pulses: within normal limits - Abdominal General gastrointestinal: Present: soft, non-tender, non-distended, normal bowel sounds Female genitourinary: Present: normal - Integumentary Integumentary: Present: clear, warm, dry - Musculoskeletal Musculoskeletal: gait normal, strength equal bilaterally - Psychiatric Psychiatric: appropriate mood/affect, intact judgment & insight - Neurologic Neurologic: CNII-XII intact, moves all extremities Plan Activity: no restrictions Weight Bearing Status: Weight Bear as Tolerated Diet: regular Follow up with: PRIMARY CARE, [Primary Care Provider] - 3-5 Days Prescriptions: Ferrous Gluconate [Fergon 325 MG tab] 324 mg PO QDAY #30 tablet amLODIPine [Norvasc] 5 mg PO QDAY #30 tablet Pantoprazole [Protonix TAB] 40 mg PO BID #40 tablet
[2018-08-21] MEDS ORDERED: PROTONIX PO SCH (22:00)
== END 2018-08-20 11:40 | disposition home or self-care (01) | DRG 812 ==
LOC: ED 10:25 → 4A 15:39 → 2B-ACE 08-18 14:42
PROVIDERS: ADMIT Internal Medicine; ATTEND Hospitalist
PROC: 30233N1 Transfusion of Nonautologous Red Blood Cells into Peripheral Vein, Percutaneous Approach (ICD-10-PCS; 2018-08-17)
PROC: 0DJ08ZZ Inspection of Upper Intestinal Tract, Via Natural or Artificial Opening Endoscopic (ICD-10-PCS; principal; 2018-08-19)
DX: D64.9 Anemia, unspecified (principal); N17.9 Acute kidney failure, unspecified; E87.1 Hypo-osmolality and hyponatremia; K26.9 Duodenal ulcer, unspecified as acute or chronic, without hemorrhage or perforation; E87.5 Hyperkalemia; I70.203 Unspecified atherosclerosis of native arteries of extremities, bilateral legs; E83.42 Hypomagnesemia; K29.70 Gastritis, unspecified, without bleeding; I10 Essential (primary) hypertension; K44.9 Diaphragmatic hernia without obstruction or gangrene; E11.9 Type 2 diabetes mellitus without complications; I25.10 Atherosclerotic heart disease of native coronary artery without angina pectoris; Z85.3 Personal history of malignant neoplasm of breast; Z90.11 Acquired absence of right breast and nipple
CPT/HCPCS: 36415; 71045; 71275; 74177; 80048; 80053; 80061; 81001; 82140; 82270; 82271; 82550; 82728; 82962; 83036; 83550; 83735; 84439; 84443; 84484; 85025; 85027; 85610; 85730; 86850; 86900; 86901; 86920; 88305; 88342; 93005; 93010; G0378; C9113; J0610; J1815; J2270; J2405; J2704; J3010; J3475; J7030; J7040; P9016; Q9967

== ENCOUNTER 2019-09-24 09:25 | Emergency (ER) | payer MEDICARE ==
--- NOTE | 2019-09-24 09:51 | Consultation ---
History of Present Illness Consult date: 09/24/19 Reason for Consult: stroke symptoms Medications and Allergies Allergies Allergy/AdvReac Type Severity Reaction Status Date / Time No Known Allergies Allergy Verified 11/07/17 00:25 Home Medications Medication Instructions Recorded Confirmed Last Taken Type Cephalexin [Keflex] 500 mg PO BID #6 capsule 11/08/17 08/18/18 Unknown Rx Ferrous Gluconate [Fergon 325 MG 324 mg PO QDAY #30 tablet 08/20/18 Unknown Rx tab] Pantoprazole [Protonix TAB] 40 mg PO BID #40 tablet 08/20/18 Unknown Rx amLODIPine 5 mg PO QDAY #30 tablet 08/20/18 Unknown Rx Assessment and Plan [facility] Date of Service: 09/24/2019 09:18:59 Impression: R thalamic ICH Comments/Sign-Out: 69 yo F with hypertensive emergency presents with R thalamic ICH. Patient is in stable condition current pressures in 170s systolics. Metrics: Last Known Well: 09/24/2019 08:30:00 [facility] Notification Time: 09/24/2019 09:18:41 Arrival Time: 09/24/2019 09:25:00 Stamp Time: 09/24/2019 09:18:59 Time First Login Attempt: 09/24/2019 09:25:14 Video Start Time: 09/24/2019 09:27:08 Symptoms: left sided numbness NIHSS Start Assessment Time: 09/24/2019 09:39:15 Patient is not a candidate for tPA. Patient was not deemed candidate for tPA thrombolytics because of Current or Previous ICH. Video End Time: 09/24/2019 09:49:45 CT head was reviewed and results were: R thalamic ICH Clinical Presentation is not Suggestive of Large Vessel Occlusive Disease ED Physician notified of diagnostic impression and management plan on 09/24/2019 09:40:12 Our recommendations are outlined below. Recommendations: Activate Stroke Protocol Admission/Order Set Stroke/Telemetry Floor Neuro Checks Bedside Swallow Eval DVT Prophylaxis IV Fluids, Normal Saline Head of Bed 30 Degrees Euglycemia and Avoid Hyperthermia (PRN Acetaminophen) BP goal <140/90, cardene for control Supportive care Transfer to outside facility for neurosurgical eval, at this time no intervention anticipated based on exam size and location of bleed Routine Consultation with Inhouse Neurology for Follow up Care Sign Out: Discussed with Emergency Department Provider History of Present Illness: Patient is a 69 year old Female. Patient was brought by EMS for symptoms of left sided numbness hx breast CA, HTN, DM2 not on blood thinners who has left sided numbness and tingling since 0830 this morning. She has hypertensive emergency with SBP 230s. CT shows right thalamic hemorrhage. On exam she is [place]i speaking but fluent without dysarthria per silk opener on phone. Left facial droop, left arm and leg weakness with loss of sensation on left arm. Last seen normal was within 4.5 hours. There is history of hemorrhagic complications or intracranial hemorrhage. There is no history of Recent Anticoagulants. There is no history of recent major surgery. There is no history of recent stroke. Examination: 1A: Level of Consciousness - Alert; keenly responsive + 0 1B: Ask Month and Age - Both Questions Right + 0 1C: Blink Eyes & Squeeze Hands - Performs Both Tasks + 0 2: Test Horizontal Extraocular Movements - Normal + 0 3: Test Visual Gallagher - No Visual Loss + 0 4: Test Facial Palsy (Use Grimace if Obtunded) - Partial paralysis (lower face) + 2 5A: Test Left Arm Motor Drift - Some Effort Against [place] + 2 5B: Test Right Arm Motor Drift - No Drift for 10 Seconds + 0 6A: Test Left Leg Motor Drift - No Effort Against [place] + 3 6B: Test Right Leg Motor Drift - No Drift for 5 Seconds + 0 7: Test Limb Ataxia (FNF/Heel-Bergeron) - No Ataxia + 0 8: Test Sensation - Complete Loss: Cannot Sense Being Touched At All + 2 9: Test Language/Aphasia - Normal; No aphasia + 0 10: Test Dysarthria - Normal + 0 11: Test Extinction/Inattention - No abnormality + 0 NIHSS Score: 9 Patient/Family was informed the Neurology Consult would happen via TeleHealth consult by way of interactive audio and video telecommunications and consented to receiving care in this manner. Due to the immediate potential for life-threatening deterioration due to underlying acute neurologic illness, I spent 35 minutes providing critical care. This time includes time for face to face visit via telemedicine, review of medical records, imaging studies and discussion of findings with providers, the patient and/or family. Dr Cruzito Panchal [facility] Case [id number]
--- NOTE | 2019-09-24 09:56 | Emergency Department Report ---
ED Neuro Deficit HPI - General Stated Complaint: POSS CVA Time Seen by Provider: 09/24/19 09:34 Source: patient, EMS Limitations: Language Barrier - History of Present Illness Initial Comments: 63-year-old female with history of hypertension, diabetes, breast cancer s/p right mastectomy presents to ED with onset of left-sided weakness and numbness at approximately 830 this morning. Patient reports headache as well. Patient denies taking any blood thinners. EMS reports SBP of 230 in the field. History obtained using language line. Patient speaks [place]olan. Second Mate reports patient's speech is clear, not slurred. -: hour(s) (1.5) Last Observed Normal: 08:30 Location: left arm, left leg Presenting Symptoms: Present: Weak/Paralyzed One Side History of same: No Place: home Severity: moderate Quality: weak, numb Improves With: none Worsens With: none On Anticoagulants: No - Related Data Home Medications: Previous Rx's Medication Instructions Recorded Last Taken Type Cephalexin [Keflex] 500 mg PO BID #6 capsule 11/08/17 Unknown Rx Ferrous Gluconate [Fergon 325 MG 324 mg PO QDAY #30 tablet 08/20/18 Unknown Rx tab] Pantoprazole [Protonix TAB] 40 mg PO BID #40 tablet 08/20/18 Unknown Rx amLODIPine 5 mg PO QDAY #30 tablet 08/20/18 Unknown Rx Allergies/Adverse Reactions: Allergies Allergy/AdvReac Type Severity Reaction Status Date / Time No Known Allergies Allergy Verified 11/07/17 00:25 ED Review of Systems ROS: Stated complaint: POSS CVA Other details as noted in HPI Comment: All other systems reviewed and negative Constitutional: denies: fever Respiratory: denies: cough, shortness of breath Gastrointestinal: denies: diarrhea Neurological: headache, weakness, numbness ED Past Medical Hx - Past Medical History Hx Hypertension: Yes Hx Heart Attack/AMI: No Hx Congestive Heart Failure: No Hx Diabetes: Yes Hx Deep Vein Thrombosis: No Hx Liver Disease: No - Surgical History Hx Coronary Stent: No Hx Pacemaker: No Hx Internal Defibrillator: No Hx Breast Surgery: Yes (2007) - Social History Smoking Status: Never Smoker - Medications Home Medications: Home Medications Medication Instructions Recorded Confirmed Last Taken Type Cephalexin [Keflex] 500 mg PO BID #6 capsule 11/08/17 08/18/18 Unknown Rx Ferrous Gluconate [Fergon 325 MG 324 mg PO QDAY #30 tablet 08/20/18 Unknown Rx tab] Pantoprazole [Protonix TAB] 40 mg PO BID #40 tablet 08/20/18 Unknown Rx amLODIPine 5 mg PO QDAY #30 tablet 08/20/18 Unknown Rx ED Neuro Physical Exam - General Limitations: Language Barrier General appearance: alert, in no apparent distress Suspected Stroke: Yes - Head Head exam: Present: atraumatic, normocephalic - Eye Eye exam: Present: normal appearance, PERRL, EOMI - ENT ENT exam: Present: mucous membranes moist - Neck Neck exam: Present: normal inspection - Respiratory Respiratory exam: Present: normal lung sounds bilaterally. Absent: respiratory distress - Cardiovascular Cardiovascular Exam: Present: regular rate, normal rhythm - GI/Abdominal GI/Abdominal exam: Present: soft. Absent: distended, tenderness - Extremities Exam Extremities exam: Present: normal inspection - Neurological Exam Neurological exam: Present: alert, oriented X3, other (GCS= 15) - NIHSS Assessment Interval: Baseline 1a. Level of Consciousness: alert/keenly responsive 1b. LOC Questions: answers both correctly 1c. LOC Commands: performs tasks correctly 2. Best Gaze: normal 3. Visual: no visual loss 4. Facial Palsy: partial paralysis 5b. Motor Arm Right: no drift 5a. Motor Arm Left: some gravity effort 6a. Motor Leg Left: no gravity effort 6b. Motor Leg Right: no drift 7. Limb Ataxia: absent 8. Sensory: severe/total sensory loss 9. Best Language: no aphasia 10. Dysarthria: normal 11. Extinction/Inattention: no abnormality Total Score: 9 Stroke Severity: Moderate Stroke - Psychiatric Psychiatric exam: Present: normal affect, normal mood - Skin Skin exam: Present: warm, dry, intact, normal color ED Course Vital Signs 09/24/19 09/24/19 09/24/19 09:44 09:59 10:02 Temperature 98.8 F Pulse Rate 81 90 Respiratory 16 10 L Rate Blood Pressure 174/77 174/77 212/87 Blood Pressure [Left] O2 Sat by Pulse 99 99 Oximetry 09/24/19 09/24/19 09/24/19 10:30 11:00 11:30 Temperature Pulse Rate 80 72 89 Respiratory 16 13 15 Rate Blood Pressure 186/84 156/67 135/71 Blood Pressure [Left] O2 Sat by Pulse 93 99 97 Oximetry 09/24/19 12:26 Temperature Pulse Rate Respiratory Rate Blood Pressure Blood Pressure 138/48 [Left] O2 Sat by Pulse Oximetry - Consultations Consultation #1: 09/24/19 09:58 Spoke w/stroke neurologist at [place], Dr Ridley. Aware of pt. Will check to see if beds available. Will call back. 09/24/19 10:21 Spoke w/ Dr Cuellar, accepts transfer to [place]. - Lab Data Result diagrams: 09/24/19 09:58 09/24/19 09:58 Lab Results 09/24/19 09/24/19 09/24/19 Range/Units 09:58 09:58 09:58 WBC 7.1 (4.5-11.0) K/mm3 RBC 3.88 (3.65-5.03) M/mm3 Hgb 10.8 (10.1-14.3) gm/dl Hct 34.0 (30.3-42.9) % MCV 88 (79-97) fl MCH 28 (28-32) pg MCHC 32 (30-34) % RDW 12.8 L (13.2-15.2) % Plt Count 202 (140-440) K/mm3 Lymph % (Auto) 18.7 (13.4-35.0) % [place] % (Auto) 3.5 (0.0-7.3) % Eos % (Auto) 0.4 (0.0-4.3) % Baso % (Auto) 0.1 (0.0-1.8) % Lymph # 1.3 (1.2-5.4) K/mm3 [place] # 0.2 (0.0-0.8) K/mm3 Eos # 0.0 (0.0-0.4) K/mm3 Baso # 0.0 (0.0-0.1) K/mm3 Seg Neutrophils % 77.3 H (40.0-70.0) % Seg Neutrophils # 5.5 (1.8-7.7) K/mm3 PT 12.0 L (12.2-14.9) Sec. INR 0.87 (0.87-1.13) APTT 28.3 (24.2-36.6) Sec. Thrombin Time 15.3 (15.1-19.6) Sec. Sodium 137 (137-145) mmol/L Potassium 4.5 (3.6-5.0) mmol/L Chloride 99.9 (98-107) mmol/L Carbon Dioxide 23 (22-30) mmol/L Anion Gap 19 mmol/L BUN 21 H (7-17) mg/dL Creatinine 0.9 (0.7-1.2) mg/dL Estimated GFR > 60 ml/min BUN/Creatinine Ratio 23 % Glucose 159 H (65-100) mg/dL POC Glucose (70-105) Calcium 9.9 (8.4-10.2) mg/dL Troponin T < 0.010 (0.00-0.029) ng/mL 09/24/19 Range/Units 10:12 WBC (4.5-11.0) K/mm3 RBC (3.65-5.03) M/mm3 Hgb (10.1-14.3) gm/dl Hct (30.3-42.9) % MCV (79-97) fl MCH (28-32) pg MCHC (30-34) % RDW (13.2-15.2) % Plt Count (140-440) K/mm3 Lymph % (Auto) (13.4-35.0) % [place] % (Auto) (0.0-7.3) % Eos % (Auto) (0.0-4.3) % Baso % (Auto) (0.0-1.8) % Lymph # (1.2-5.4) K/mm3 [place] # (0.0-0.8) K/mm3 Eos # (0.0-0.4) K/mm3 Baso # (0.0-0.1) K/mm3 Seg Neutrophils % (40.0-70.0) % Seg Neutrophils # (1.8-7.7) K/mm3 PT (12.2-14.9) Sec. INR (0.87-1.13) APTT (24.2-36.6) Sec. Thrombin Time (15.1-19.6) Sec. Sodium (137-145) mmol/L Potassium (3.6-5.0) mmol/L Chloride (98-107) mmol/L Carbon Dioxide (22-30) mmol/L Anion Gap mmol/L BUN (7-17) mg/dL Creatinine (0.7-1.2) mg/dL Estimated GFR ml/min BUN/Creatinine Ratio % Glucose (65-100) mg/dL POC Glucose 153 H (70-105) Calcium (8.4-10.2) mg/dL Troponin T (0.00-0.029) ng/mL - EKG Data -: EKG Interpreted by Me EKG shows normal: sinus rhythm, axis, intervals, QRS complexes, ST-T waves Rate: normal Interpretation: no acute changes, other (occasional PVC) - Radiology Data Radiology results: report reviewed, image reviewed - Medical Decision Making 69-year-old female with hemorrhagic CVA and left-sided deficits. Patient is awake and alert, able to answer questions appropriately. GCS 15. Blood pressure currently controlled on Cardene drip. Patient will be transferred to [place] for further management. - Differential Diagnosis CVA Critical Care Time: Yes Critical care time in (mins) excluding proc time.: 35 Critical care attestation.: If time is entered above; I have spent that time in minutes in the direct care of this critically ill patient, excluding procedure time. Critical Care Time: 35 min ED Disposition Clinical Impression: Hemorrhagic cerebrovascular accident (CVA) Disposition: [id number]/TX-[id number] ANOTHER TYPE HLTHCARE Is pt being admited?: No Condition: Stable Referrals: PRIMARY CARE, [Primary Care Provider] - 3-5 Days
--- NOTE | 2019-09-24 09:56 | Cat Scan Report ---
CT HEAD WITHOUT CONTRAST INDICATION: Code stroke. TECHNIQUE: All CT scans at this facility use dose modulation, automated exposure control, iterative r econstruction or weight based dosing, when appropriate, to reduce radiation dose to as low as reasona mable achievable. COMPARISON: No relevant prior studies are available for comparison. FINDINGS: A right thalamic acute hemorrhage measures 2.7 x 2.5 x 1.2 cm. No other hemorrhage identified. No roland picious hypodensities. No extra-axial fluid collections are seen. The ventricles and sulci are normal for age. Punctate hypodensities are seen within the basal ganglia. These are nonspecific but most l ikely due to microangiopathy. Paranasal sinuses are clear. No acute/significant osseous abnormalities . IMPRESSION: 1. Acute right thalamic hemorrhage measuring 2.7cm. 2. No evidence of large territorial infarct. CODE STROKE A verbal report was given to Emanuel Antonio R.N. in the emergency department on 09/24/19 at 9:49 AM EST. Signer Name: Tunde Johnston MD Signed: 09/24/2019 9:51 AM Workstation Name: [id number]
[2019-09-24] MEDS ORDERED: niCARdipine 50 MG in SODIUM CHLORIDE 0.9% 250ML 230 ML IV SCH (10:00)
[2019-09-24 10:08] LABS: Basophils % (Auto) 0.1 % (0.0-1.8); Eosinophils % (Auto) 0.4 % (0.0-4.3); Hemoglobin 10.8 gm/dl (10.1-14.3); Lymphocytes # (Auto) 1.3 K/mm3 (1.2-5.4); Lymphocytes % (Auto) 18.7 % (13.4-35.0); Mean Corpuscular HGB Conc 32 % (30-34); Mean Corpuscular Volume 88 fl (79-97); Monocytes # (Auto) 0.2 K/mm3 (0.0-0.8); Monocytes % (Auto) 3.5 % (0.0-7.3); Platelet Count 202 K/mm3 (140-440); Red Blood Count 3.88 M/mm3 (3.65-5.03); Red Cell Distribution Width 12.8 % (13.2-15.2)
[2019-09-24] MEDS ORDERED: MORPHINE 2 MG/1 ML INJ IV ONE (10:13)
[2019-09-24 10:14] LABS: INR 0.87 (0.87-1.13)
[2019-09-24] MEDS ORDERED: ONDANSETRON 4 MG/2 ML INJ IV ONE (10:14)
[2019-09-24 10:15] LABS: Partial Thromboplastin Time 28.3 Sec. (24.2-36.6); Thrombin Time 15.3 Sec. (15.1-19.6)
[2019-09-24 10:27] LABS: BUN/Creatinine Ratio 23; Blood Urea Nitrogen 21 mg/dL (7-17); Calcium 9.9 mg/dL (8.4-10.2); Hemolysis Index 12
[2019-09-24 12:28] VITALS: BP 138/48
== END 2019-09-24 12:28 | disposition other institution (70) ==
LOC: ED 09:25
DX: I62.9 Nontraumatic intracranial hemorrhage, unspecified (principal); G81.94 Hemiplegia, unspecified affecting left nondominant side; R53.1 Weakness; I10 Essential (primary) hypertension; E11.9 Type 2 diabetes mellitus without complications; Z98.890 Other specified postprocedural states; Z79.899 Other long term (current) drug therapy
CPT/HCPCS: 36415; 70450; 80048; 82962; 84484; 85025; 85610; 85670; 85730; 93005; 96365; 96366; 96375; 99291; J2270; J2405; J7050